=== PATIENT | male | born 1965 | race Caucasian/White ===

== ENCOUNTER 2020-12-04 08:01 | Outpatient (REF) | payer BC, SELFPAY ==
[2020-12-04 08:19] LABS: MANUAL DIFF FLAG NO
[2020-12-04 08:23] LABS: Basophils Percent Auto 0.2 % (0-2); Eosinophils Absolute Auto 0.1 X10*3/uL (0.0-0.4); Eosinophils Percent Auto 1.4 % (0-4); Hematocrit 45.4 % (42-52); Hemoglobin 15.1 g/dl (14.0-18.0); Imm Gran Abs Auto 0.05 X10*3/uL (0.00-0.03); Lymphocytes Absolute Auto 1.8 X10*3/uL (1.2-4.9); Lymphocytes Percent Auto 35.4 % (20-40); Mean Corpuscular HGB Conc 33.3 g/dl (31.0-36.0); Mean Corpuscular Hemoglobin 32.9 pg (27.0-33.0); Mean Corpuscular Volume 98.9 fL (80-98); Mean Platelet Volume 8.8 fL (9.4-12.4); Monocytes Absolute Auto 0.5 X10*3/uL (0.1-1.2); Monocytes Percent Auto 9.4 % (2-11); Neutrophils Absolute Auto 2.7 X10*3/uL (2.0-8.3); Neutrophils Percent Auto 52.6 % (45-73); Platelet Count 226 X10*3/uL (160-400); Red Blood Count 4.59 X10*6/uL (4.60-5.80); Red Cell Distribution Width 11.7 % (11.0-16.0); White Blood Count 5.1 X10*3/uL (4.8-10.8)
[2020-12-04 08:52] LABS: Alanine Aminotransferase 16 U/L (0-40); Albumin Level 4.5 g/dL (3.5-5.0); Alkaline Phosphatase 62 U/L (39-117); Anion Gap 13 (12-20); Aspartate Amino Transferase 12 U/L (5-37); Bilirubin Total 0.8 mg/dL (0.0-1.0); Blood Urea Nitrogen 17 mg/dL (9-16); Calcium 9.1 mg/dL (8.4-10.2); Carbon Dioxide 29 mmol/L (22-29); Chloride 103 mmol/L (96-108); Cholesterol 180 mg/dL; Estimated Glomerular Filt Rate > 60; Glucose Fasting 90 mg/dL (60-99); HDL Cholesterol 29 mg/dL; LDL Cholesterol Calculated 110 mg/dl; Sodium 140 mmol/L (135-145); Triglycerides 206 mg/dL
[2020-12-04 09:14] LABS: Prostate Specific Antigen 0.64 ng/mL (<0.05-4.0); Vitamin D 25-OH Total 11.7 ng/mL (>30)
== END 2020-12-04 08:02 | disposition home or self-care (01) ==
LOC: HO.LAB 08:01
PROVIDERS: Visit Provider Internal Medicine Medical Oncology
DX: E78.5 Hyperlipidemia, unspecified (principal); I10 Essential (primary) hypertension; E66.9 Obesity, unspecified
CPT/HCPCS: 36415; 80053; 80061; 82306; 84153; 85025

== ENCOUNTER 2021-03-03 07:51 | Outpatient (REF) | payer BC, SELFPAY ==
[2021-03-03 08:32] LABS: MANUAL DIFF FLAG NO
[2021-03-03 08:39] LABS: Basophils Percent Auto 0.4 % (0-2); Eosinophils Absolute Auto 0.1 X10*3/uL (0.0-0.4); Eosinophils Percent Auto 1.2 % (0-4); Hematocrit 45.7 % (42-52); Hemoglobin 15.3 g/dl (14.0-18.0); Imm Gran Abs Auto 0.06 X10*3/uL (0.00-0.03); Imm Gran Pct Auto 1.2 % (0.0-0.4); Lymphocytes Absolute Auto 1.8 X10*3/uL (1.2-4.9); Lymphocytes Percent Auto 36.3 % (20-40); Mean Corpuscular HGB Conc 33.5 g/dl (31.0-36.0); Mean Corpuscular Hemoglobin 32.2 pg (27.0-33.0); Mean Corpuscular Volume 96.2 fL (80-98); Mean Platelet Volume 9.1 fL (9.4-12.4); Monocytes Absolute Auto 0.5 X10*3/uL (0.1-1.2); Neutrophils Absolute Auto 2.5 X10*3/uL (2.0-8.3); Neutrophils Percent Auto 50.9 % (45-73); Platelet Count 223 X10*3/uL (160-400); Red Blood Count 4.75 X10*6/uL (4.60-5.80); Red Cell Distribution Width 11.7 % (11.0-16.0); White Blood Count 4.9 X10*3/uL (4.8-10.8)
[2021-03-03 09:07] LABS: Alanine Aminotransferase 21 U/L (0-40); Albumin Level 4.3 g/dL (3.5-5.0); Alkaline Phosphatase 73 U/L (39-117); Anion Gap 14 (12-20); Aspartate Amino Transferase 11 U/L (5-37); Bilirubin Total 0.6 mg/dL (0.0-1.0); Blood Urea Nitrogen 16 mg/dL (9-16); Calcium 9.4 mg/dL (8.4-10.2); Carbon Dioxide 29 mmol/L (22-29); Chloride 102 mmol/L (96-108); Cholesterol 192 mg/dL; Estimated Glomerular Filt Rate > 60; Glucose Fasting 89 mg/dL (60-99); HDL Cholesterol 32 mg/dL; LDL Cholesterol Calculated 113 mg/dl; Potassium 4.7 mmol/L (3.3-5.1); Sodium 140 mmol/L (135-145); Total Protein 6.8 g/dL (6.5-8.0); Triglycerides 235 mg/dL
== END 2021-03-03 07:52 | disposition home or self-care (01) ==
LOC: HO.LAB 07:51
PROVIDERS: PCP Internal Medicine Medical Oncology; Visit Provider Internal Medicine Medical Oncology
DX: E78.5 Hyperlipidemia, unspecified (principal); I10 Essential (primary) hypertension
CPT/HCPCS: 36415; 80053; 80061; 85025

== ENCOUNTER 2021-07-01 06:38 | Outpatient (REF) | payer BC, SELFPAY ==
[2021-07-01 07:01] LABS: MANUAL DIFF FLAG NO
[2021-07-01 07:09] LABS: Basophils Percent Auto 0.6 % (0-2); Eosinophils Absolute Auto 0.1 X10*3/uL (0.0-0.4); Hemoglobin 15.9 g/dl (14.0-18.0); Imm Gran Abs Auto 0.04 X10*3/uL (0.00-0.03); Imm Gran Pct Auto 0.8 % (0.0-0.4); Lymphocytes Percent Auto 39.6 % (20-40); Mean Corpuscular HGB Conc 33.8 g/dl (31.0-36.0); Mean Corpuscular Hemoglobin 32.9 pg (27.0-33.0); Mean Corpuscular Volume 97.3 fL (80-98); Mean Platelet Volume 9.1 fL (9.4-12.4); Monocytes Absolute Auto 0.4 X10*3/uL (0.1-1.2); Monocytes Percent Auto 7.2 % (2-11); Neutrophils Absolute Auto 2.5 X10*3/uL (2.0-8.3); Neutrophils Percent Auto 50.8 % (45-73); Platelet Count 231 X10*3/uL (160-400); Red Blood Count 4.83 X10*6/uL (4.60-5.80); Red Cell Distribution Width 12.2 % (11.0-16.0)
[2021-07-01 07:33] LABS: Alanine Aminotransferase 20 U/L (0-40); Albumin Level 4.4 g/dL (3.5-5.0); Alkaline Phosphatase 64 U/L (39-117); Anion Gap 12 (12-20); Aspartate Amino Transferase 12 U/L (5-37); Bilirubin Total 0.5 mg/dL (0.0-1.0); Blood Urea Nitrogen 12 mg/dL (9-16); Calcium 9.7 mg/dL (8.4-10.2); Carbon Dioxide 28 mmol/L (22-29); Chloride 104 mmol/L (96-108); Cholesterol 193 mg/dL; Estimated Glomerular Filt Rate > 60; Glucose Fasting 96 mg/dL (60-99); HDL Cholesterol 31 mg/dL; LDL Cholesterol Calculated 112 mg/dl; Sodium 139 mmol/L (135-145); Total Protein 7.1 g/dL (6.5-8.0); Triglycerides 254 mg/dL
[2021-07-01 07:54] LABS: Vitamin D 25-OH Total 42.9 ng/mL (>30)
== END 2021-07-01 06:39 | disposition home or self-care (01) ==
LOC: HO.LAB 06:38
PROVIDERS: PCP Internal Medicine Medical Oncology; Visit Provider Internal Medicine Medical Oncology
DX: E78.5 Hyperlipidemia, unspecified (principal); I10 Essential (primary) hypertension; E66.9 Obesity, unspecified
CPT/HCPCS: 36415; 80053; 80061; 82306; 84153; 85025

== ENCOUNTER 2021-11-02 07:14 | Outpatient (REF) | payer BC, SELFPAY ==
[2021-11-02 07:30] LABS: MANUAL DIFF FLAG NO
[2021-11-02 07:47] LABS: Basophils Percent Auto 0.4 % (0-2); Eosinophils Absolute Auto 0.1 X10*3/uL (0.0-0.4); Eosinophils Percent Auto 2.6 % (0-4); Hematocrit 46.6 % (42.0-52.0); Hemoglobin 15.5 g/dl (14.0-18.0); Imm Gran Abs Auto 0.06 X10*3/uL (0.00-0.03); Imm Gran Pct Auto 1.3 % (0.0-0.4); Lymphocytes Absolute Auto 1.6 X10*3/uL (1.2-4.9); Lymphocytes Percent Auto 35.1 % (20-40); Mean Corpuscular HGB Conc 33.3 g/dl (31.0-36.0); Mean Corpuscular Hemoglobin 32.5 pg (27.0-33.0); Mean Corpuscular Volume 97.7 fL (80.0-98.0); Mean Platelet Volume 8.6 fL (9.4-12.4); Monocytes Absolute Auto 0.5 X10*3/uL (0.1-1.2); Monocytes Percent Auto 10.3 % (2-11); Neutrophils Absolute Auto 2.3 x10*3/uL (2.0-8.3); Neutrophils Percent Auto 50.3 % (45-73); Platelet Count 207 X10*3/uL (160-400); Red Blood Count 4.77 X10*6/uL (4.60-5.80); Red Cell Distribution Width 11.9 % (11.0-16.0); White Blood Count 4.7 X10*3/uL (4.8-10.8)
[2021-11-02 08:11] LABS: Alanine Aminotransferase 34 U/L (0-40); Albumin Level 4.2 g/dL (3.5-5.0); Alkaline Phosphatase 70 U/L (39-117); Anion Gap 11 (12-20); Aspartate Amino Transferase 16 U/L (5-37); Bilirubin Total 0.2 mg/dL (0.0-1.0); Blood Urea Nitrogen 12 mg/dL (9-16); Calcium 9.4 mg/dL (8.4-10.2); Carbon Dioxide 29 mmol/L (22-29); Chloride 104 mmol/L (96-108); Cholesterol 176 mg/dL; Estimated Glomerular Filt Rate > 60; Glucose Random 94 mg/dL (60-115); HDL Cholesterol 27 mg/dL; LDL Cholesterol Calculated 95 mg/dl; Potassium 4.5 mmol/L (3.3-5.1); Sodium 139 mmol/L (135-145); Total Protein 6.9 g/dL (6.5-8.0); Triglycerides 273 mg/dL
== END 2021-11-02 07:15 | disposition home or self-care (01) ==
LOC: HO.LAB 07:14
PROVIDERS: PCP Internal Medicine Medical Oncology; Visit Provider Internal Medicine Medical Oncology
DX: I10 Essential (primary) hypertension (principal); E78.5 Hyperlipidemia, unspecified; E66.9 Obesity, unspecified
CPT/HCPCS: 36415; 80053; 80061; 85025

== ENCOUNTER 2022-01-21 07:44 | Outpatient (REF) | payer BC, SELFPAY ==
[2022-01-21 08:16] LABS: MANUAL DIFF FLAG NO
[2022-01-21 08:45] LABS: Basophils Percent Auto 0.5 % (0-2); Eosinophils Percent Auto 0.7 % (0-4); Hemoglobin 16.2 g/dl (14.0-18.0); Imm Gran Abs Auto 0.03 X10*3/uL (0.00-0.03); Imm Gran Pct Auto 0.5 % (0.0-0.4); Lymphocytes Absolute Auto 2.1 X10*3/uL (1.2-4.9); Lymphocytes Percent Auto 36.3 % (20-40); Mean Corpuscular HGB Conc 33.1 g/dl (31.0-36.0); Mean Corpuscular Hemoglobin 32.2 pg (27.0-33.0); Mean Corpuscular Volume 97.4 fL (80.0-98.0); Mean Platelet Volume 9.1 fL (9.4-12.4); Monocytes Absolute Auto 0.5 X10*3/uL (0.1-1.2); Monocytes Percent Auto 8.5 % (2-11); Neutrophils Absolute Auto 3.2 x10*3/uL (2.0-8.3); Neutrophils Percent Auto 53.5 % (45-73); Platelet Count 260 X10*3/uL (160-400); Red Blood Count 5.03 X10*6/uL (4.60-5.80); White Blood Count 5.9 X10*3/uL (4.8-10.8)
[2022-01-21 09:27] LABS: Alanine Aminotransferase 31 U/L (0-40); Albumin Level 4.7 g/dL (3.5-5.0); Alkaline Phosphatase 72 U/L (39-117); Anion Gap 14 (12-20); Aspartate Amino Transferase 15 U/L (5-37); Bilirubin Total 0.6 mg/dL (0.0-1.0); Blood Urea Nitrogen 15 mg/dL (9-16); Calcium 10.4 mg/dL (8.4-10.2); Carbon Dioxide 28 mmol/L (22-29); Chloride 105 mmol/L (96-108); Cholesterol 195 mg/dL; Estimated Glomerular Filt Rate > 60; Glucose Fasting 94 mg/dL (60-99); HDL Cholesterol 29 mg/dL; LDL Cholesterol Calculated 118 mg/dl; Potassium 5.4 mmol/L (3.3-5.1); Sodium 142 mmol/L (135-145); Total Protein 7.6 g/dL (6.5-8.0); Triglycerides 242 mg/dL
[2022-01-21 09:51] LABS: Vitamin D 25-OH Total 31.8 ng/mL (>30)
== END 2022-01-21 07:45 | disposition home or self-care (01) ==
LOC: HO.LAB 07:44
PROVIDERS: PCP Internal Medicine Medical Oncology; Visit Provider Internal Medicine Medical Oncology
DX: I10 Essential (primary) hypertension (principal); E66.9 Obesity, unspecified; D75.89 Other specified diseases of blood and blood-forming organs
CPT/HCPCS: 36415; 80053; 80061; 82306; 85025

== ENCOUNTER 2022-04-27 06:31 | Outpatient (REF) | payer BC, SELFPAY ==
[2022-04-27 06:42] LABS: MANUAL DIFF FLAG NO
[2022-04-27 07:30] LABS: Basophils Percent Auto 0.2 % (0-2); Eosinophils Absolute Auto 0.1 X10*3/uL (0.0-0.4); Eosinophils Percent Auto 0.9 % (0-4); Hematocrit 42.7 % (42.0-52.0); Imm Gran Abs Auto 0.09 X10*3/uL (0.00-0.03); Imm Gran Pct Auto 1.6 % (0.0-0.4); Lymphocytes Absolute Auto 1.3 X10*3/uL (1.2-4.9); Lymphocytes Percent Auto 24.1 % (20-40); Mean Corpuscular HGB Conc 32.8 g/dl (31.0-36.0); Mean Corpuscular Hemoglobin 32.2 pg (27.0-33.0); Mean Corpuscular Volume 98.2 fL (80.0-98.0); Mean Platelet Volume 8.7 fL (9.4-12.4); Monocytes Absolute Auto 0.5 X10*3/uL (0.1-1.2); Monocytes Percent Auto 8.3 % (2-11); Neutrophils Absolute Auto 3.6 x10*3/uL (2.0-8.3); Neutrophils Percent Auto 64.9 % (45-73); Platelet Count 179 X10*3/uL (160-400); Red Blood Count 4.35 X10*6/uL (4.60-5.80); Red Cell Distribution Width 13.3 % (11.0-16.0); White Blood Count 5.5 X10*3/uL (4.8-10.8)
[2022-04-27 07:59] LABS: Alanine Aminotransferase 22 U/L (0-40); Albumin Level 4.1 g/dL (3.5-5.0); Alkaline Phosphatase 66 U/L (39-117); Anion Gap 15 (12-20); Aspartate Amino Transferase 11 U/L (5-37); Bilirubin Total 0.8 mg/dL (0.0-1.0); Blood Urea Nitrogen 11 mg/dL (9-16); Calcium 9.1 mg/dL (8.4-10.2); Carbon Dioxide 26 mmol/L (22-29); Chloride 103 mmol/L (96-108); Cholesterol 205 mg/dL; Estimated Glomerular Filt Rate > 60; Glucose Fasting 97 mg/dL (60-99); HDL Cholesterol 34 mg/dL; LDL Cholesterol Calculated 126 mg/dl; Potassium 4.8 mmol/L (3.3-5.1); Sodium 139 mmol/L (135-145); Total Protein 6.6 g/dL (6.5-8.0); Triglycerides 225 mg/dL
== END 2022-04-27 06:32 | disposition home or self-care (01) ==
LOC: HO.LAB 06:31
PROVIDERS: PCP Internal Medicine Medical Oncology; Visit Provider Internal Medicine Medical Oncology
DX: E78.5 Hyperlipidemia, unspecified (principal); E66.9 Obesity, unspecified; D75.89 Other specified diseases of blood and blood-forming organs
CPT/HCPCS: 36415; 80053; 80061; 85025

== ENCOUNTER 2022-04-30 10:46 | Outpatient (REF) | payer BC, SELFPAY ==
--- NOTE | ~2022-04-30 | XR_ITS ---
EXAMINATION: XR RIBS, RIGHT CLINICAL INFORMATION: Right-sided pain COMPARISON: None TECHNIQUE: 3 views of the right ribs and one view of the chest were obtained. FINDINGS: The cardiac and mediastinal contours are normal. There is slight elevation of the right hemidiaphragm. The lungs are clear.. There is no pleural effusion or pneumothorax. There are degenerative changes of the thoracic spine. No rib fracture is seen. XR/XR ribs RT min 3V w CXR1V IMPRESSION: No evidence for acute disease in the chest. No rib fracture is seen.
== END 2022-04-30 10:47 | disposition home or self-care (01) ==
LOC: HO.XRAY 10:46
PROVIDERS: PCP Internal Medicine Medical Oncology; Visit Provider Internal Medicine Medical Oncology
DX: R07.81 Pleurodynia (principal)
CPT/HCPCS: 71101

== ENCOUNTER → 2023-02-11 09:46 | Outpatient (BNVA) | payer BC, SELFPAY | PROVIDERS: PCP Internal Medicine Medical Oncology; Visit Provider Physician Assistant | DX: Z13.89 Encounter for screening for other disorder (principal) ==

== ENCOUNTER → 2023-04-01 15:30 | Outpatient (BNVA) | payer BC, SELFPAY | PROVIDERS: PCP Internal Medicine Medical Oncology; Visit Provider Physician Assistant ==

== ENCOUNTER 2023-04-25 06:30 | Outpatient (REF) | payer BC, SELFPAY ==
[2023-04-25 06:40] LABS: MANUAL DIFF FLAG NO
[2023-04-25 07:27] LABS: Basophils Percent Auto 0.5 % (0-2); Eosinophils Absolute Auto 0.1 X10*3/uL (0.0-0.4); Hematocrit 48.7 % (42.0-52.0); Hemoglobin 16.2 g/dl (14.0-18.0); Imm Gran Abs Auto 0.05 X10*3/uL (0.00-0.03); Imm Gran Pct Auto 0.8 % (0.0-0.4); Lymphocytes Percent Auto 33.6 % (20-40); Mean Corpuscular HGB Conc 33.3 g/dl (31.0-36.0); Mean Corpuscular Hemoglobin 31.2 pg (27.0-33.0); Mean Corpuscular Volume 93.7 fL (80.0-98.0); Mean Platelet Volume 8.9 fL (9.4-12.4); Monocytes Absolute Auto 0.5 X10*3/uL (0.1-1.2); Monocytes Percent Auto 8.5 % (2-11); Neutrophils Absolute Auto 3.3 x10*3/uL (2.0-8.3); Neutrophils Percent Auto 55.6 % (45-73); Platelet Count 336 X10*3/uL (160-400)
[2023-04-25 08:15] LABS: Alanine Aminotransferase 25 U/L (0-40); Albumin Level 4.3 g/dL (3.5-5.0); Alkaline Phosphatase 84 U/L (39-117); Anion Gap 16 (12-20); Aspartate Amino Transferase 18 U/L (5-37); Bilirubin Total 0.6 mg/dL (0.0-1.0); Blood Urea Nitrogen 18 mg/dL (9-16); Carbon Dioxide 25 mmol/L (22-29); Chloride 107 mmol/L (96-108); Cholesterol 195 mg/dL; Estimated Glomerular Filt Rate > 60; Glucose Fasting 91 mg/dL (60-99); HDL Cholesterol 27 mg/dL; LDL Cholesterol Calculated 115 mg/dl; Potassium 4.3 mmol/L (3.3-5.1); Sodium 144 mmol/L (135-145); Total Protein 7.5 g/dL (6.5-8.0); Triglycerides 267 mg/dL
[2023-04-25 08:23] LABS: Prostate Specific Antigen 0.52 ng/mL (<0.05-4.0)
== END 2023-04-25 06:31 | disposition home or self-care (01) ==
LOC: HO.LAB 06:30
PROVIDERS: PCP Internal Medicine Medical Oncology; Visit Provider Internal Medicine Medical Oncology
DX: Z12.5 Encounter for screening for malignant neoplasm of prostate (principal); I10 Essential (primary) hypertension; E78.5 Hyperlipidemia, unspecified; E66.9 Obesity, unspecified; E83.52 Hypercalcemia
CPT/HCPCS: 36415; 80053; 80061; 80164; 84153; 85025

== ENCOUNTER 2023-04-27 09:00 | Outpatient (RCR) | payer BC, SELFPAY ==
--- NOTE | 2023-03-09 09:55 | MHC.PT.EP ---
[facility] [place] Office [place] Office [place] Office [address] Yessy Diaz [address] [phone] F: [phone] F: [phone] F: [phone] F: [phone] Physical Therapy Plan of Care Date of Evaluation: Date of Surgery: N/A Diagnosis: Sacrocccygeal disorders, not elsewhere classified Other chronic pain SI joint pain, dysfunction Assessment: Pt is a pleasant 57yo M who presents to PT, with his , with R SI joint pain. Pt presents to PT with current impairments of pain, decreased lumbar ROM, posterior chain tightness, decreased core stabilization, decreased hip/glute strength, impaired posture, and impaired gait. He is limited functionally by prolonged sitting, sit<>stand transitions, supine<>sit, getting in/out of the car, bending, and mowing the lawn. He is an excellent candidate for skilled PT in order to address current impairments to facilitate return to PLOF. He is recommended to be seen 2x/week however at this time him and his prefer 1x/week therefore he will be seen 1x/week for 6 weeks and will be reassessed at that time. Frequency and Duration: The patient will be seen 1x/week for 6 weeks Short Term Goals: Pt will be I with HEP to promote self management of symptoms Pt will perform supine<>sit with log roll technique with proper form Pt will improve B glute med strength by 1/2 grade [employer] Binder Goals: Pt will tolerate standing and walking > 25 min with minimal to no discomfort and improved gait mechanics Pt will perform functional movement transitions including sit<>stand and getting in/out of bed with improved mechanics with pain < 3/10 Pt will demonstrate improvements in function as evidenced by statistically significant improvement in Modified Oswestry Low Back Pain Disability Index Questionnaire Treatment Plan: Modalities to reduce pain, spasms and effusion. Manual therapy to restore motion and function. Therapeutic exercise to improve strength and flexibility. Neuromuscular re-education for posture and balance. Therapeutic activities to return to functional activities of daily living. Electronically signed by: Yulisa Gordon, PT, DPT Please sign and return to therapist. Thank you for your referral.
--- NOTE | 2023-04-27 11:54 | MHC.PT.DC ---
[facility] [place] Office [place] Office [place] Office [address] Morena Diaz [address] [phone] F: [phone] F: [phone] F: [phone] F: [phone] Physical Therapy Discharge Report Diagnosis: Sacrocccygeal disorders, not elsewhere classified Other chronic pain SI joint pain, dysfunction Date of Surgery: N/A Date of Evaluation: 03/09/23 Date of Discharge: 04/27/23 Treatments to Date: 6 Cancellations to Date: No Shows to Date: Discharge Status: Achieved Goals Improved Function Discharge Summary: Pt has made good progress since SOC. He has no pain. He has met his LTGs. He has improved his score on Modified Oswestry Low Back Pain Questionnaire from 30/50 on initial PT evaluation to 4/50 today. He reports he feels ready for D/C from PT. Provided pt with printed, updated copy of HEP and GTB and pt verbalized understanding. Reviewed importance of mobility and proper body mechanics and pt verbalized understanding. Pt is being D/C from skilled PT at this time. He reports no further questions or concerns for PT. Electronically signed by: Yulisa Gordon, PT, DPT Please sign and return to therapist. Thank you for your referral.
== END 2023-04-27 11:35 | disposition home or self-care (01) ==
LOC: HO.PT 09:00
PROVIDERS: PCP Internal Medicine Medical Oncology; Visit Provider Physician Assistant
DX: M53.3 Sacrococcygeal disorders, not elsewhere classified (principal); G89.29 Other chronic pain
CPT/HCPCS: 97014; 97110; 97162

== ENCOUNTER 2023-08-29 06:57 | Outpatient (REF) | payer BC, SELFPAY ==
[2023-08-29 07:16] LABS: MANUAL DIFF FLAG NO
[2023-08-29 07:45] LABS: Basophils Percent Auto 0.3 % (0-2); Eosinophils Absolute Auto 0.1 X10*3/uL (0.0-0.4); Eosinophils Percent Auto 0.9 % (0-4); Hematocrit 49.2 % (42.0-52.0); Hemoglobin 16.7 g/dl (14.0-18.0); Imm Gran Abs Auto 0.05 X10*3/uL (0.00-0.03); Imm Gran Pct Auto 0.9 % (0.0-0.4); Lymphocytes Absolute Auto 1.6 X10*3/uL (1.2-4.9); Lymphocytes Percent Auto 27.9 % (20-40); Mean Corpuscular HGB Conc 33.9 g/dl (31.0-36.0); Mean Corpuscular Hemoglobin 30.9 pg (27.0-33.0); Mean Corpuscular Volume 91.1 fL (80.0-98.0); Mean Platelet Volume 9.1 fL (9.4-12.4); Monocytes Absolute Auto 0.6 X10*3/uL (0.1-1.2); Monocytes Percent Auto 9.5 % (2-11); Neutrophils Absolute Auto 3.5 x10*3/uL (2.0-8.3); Neutrophils Percent Auto 60.5 % (45-73); Platelet Count 205 X10*3/uL (160-400); Red Cell Distribution Width 12.1 % (11.0-16.0); White Blood Count 5.8 X10*3/uL (4.8-10.8)
[2023-08-29 08:31] LABS: Alanine Aminotransferase 28 U/L (0-40); Albumin Level 4.1 g/dL (3.5-5.0); Alkaline Phosphatase 86 U/L (39-117); Anion Gap 14 (12-20); Aspartate Amino Transferase 17 U/L (5-37); Bilirubin Total 0.6 mg/dL (0.0-1.0); Blood Urea Nitrogen 14 mg/dL (9-16); Calcium 9.5 mg/dL (8.4-10.2); Carbon Dioxide 26 mmol/L (22-29); Chloride 106 mmol/L (96-108); Cholesterol 175 mg/dL (<200); Estimated Glomerular Filt Rate > 60; Glucose Fasting 94 mg/dL (60-99); HDL Cholesterol 30 mg/dL (>40); LDL Cholesterol Calculated 106 mg/dL (<100); Potassium 4.6 mmol/L (3.3-5.1); Sodium 141 mmol/L (135-145); Total Protein 6.5 g/dL (6.5-8.0); Triglycerides 199 mg/dL (<150)
== END 2023-08-29 06:58 | disposition home or self-care (01) ==
LOC: HO.LAB 06:57
PROVIDERS: PCP Internal Medicine Medical Oncology; Visit Provider Internal Medicine Medical Oncology
DX: I10 Essential (primary) hypertension (principal); E78.5 Hyperlipidemia, unspecified; G40.909 Epilepsy, unspecified, not intractable, without status epilepticus
CPT/HCPCS: 36415; 80053; 80061; 85025

== ENCOUNTER 2023-11-15 06:23 | Outpatient (REF) | payer BC, SELFPAY ==
[2023-11-15 06:34] LABS: MANUAL DIFF FLAG NO
[2023-11-15 07:46] LABS: Basophils Percent Auto 0.6 % (0-2); Eosinophils Absolute Auto 0.1 X10*3/uL (0.0-0.4); Eosinophils Percent Auto 1.4 % (0-4); Hematocrit 47.8 % (42.0-52.0); Imm Gran Abs Auto 0.06 X10*3/uL (0.00-0.03); Lymphocytes Absolute Auto 1.8 X10*3/uL (1.2-4.9); Lymphocytes Percent Auto 29.1 % (20-40); Mean Corpuscular HGB Conc 33.5 g/dl (31.0-36.0); Mean Corpuscular Hemoglobin 30.9 pg (27.0-33.0); Mean Corpuscular Volume 92.3 fL (80.0-98.0); Mean Platelet Volume 9.4 fL (9.4-12.4); Monocytes Absolute Auto 0.6 X10*3/uL (0.1-1.2); Monocytes Percent Auto 9.5 % (2-11); Neutrophils Absolute Auto 3.6 x10*3/uL (2.0-8.3); Neutrophils Percent Auto 58.4 % (45-73); Platelet Count 231 X10*3/uL (160-400); Red Blood Count 5.18 X10*6/uL (4.60-5.80); Red Cell Distribution Width 12.6 % (11.0-16.0); White Blood Count 6.2 X10*3/uL (4.8-10.8)
[2023-11-15 08:14] LABS: Alanine Aminotransferase 25 U/L (0-40); Albumin Level 4.2 g/dL (3.5-5.0); Alkaline Phosphatase 83 U/L (39-117); Anion Gap 13 (12-20); Aspartate Amino Transferase 17 U/L (5-37); Bilirubin Total 0.7 mg/dL (0.0-1.0); Blood Urea Nitrogen 14 mg/dL (9-16); Calcium 9.6 mg/dL (8.4-10.2); Carbon Dioxide 26 mmol/L (22-29); Chloride 108 mmol/L (96-108); Cholesterol 183 mg/dL (<200); Estimated Glomerular Filt Rate > 60; Glucose Fasting 105 mg/dL (60-99); HDL Cholesterol 31 mg/dL (>40); LDL Cholesterol Calculated 116 mg/dL (<100); Potassium 4.8 mmol/L (3.3-5.1); Sodium 142 mmol/L (135-145); Total Protein 6.7 g/dL (6.5-8.0); Triglycerides 180 mg/dL (<150)
[2023-11-15 08:31] LABS: Prostate Specific Antigen 0.91 ng/mL (<0.05-4.0)
== END 2023-11-15 06:24 | disposition home or self-care (01) ==
LOC: HO.LAB 06:23
PROVIDERS: PCP Internal Medicine Medical Oncology; Visit Provider Internal Medicine Medical Oncology
DX: Z12.5 Encounter for screening for malignant neoplasm of prostate (principal); I10 Essential (primary) hypertension; E78.5 Hyperlipidemia, unspecified; G40.909 Epilepsy, unspecified, not intractable, without status epilepticus; S06.9X9A Unspecified intracranial injury with loss of consciousness of unspecified duration, initial encounter; E66.9 Obesity, unspecified
CPT/HCPCS: 36415; 80053; 80061; 84153; 85025

== ENCOUNTER 2024-02-15 07:01 | Outpatient (REF) | payer BC, SELFPAY ==
[2024-02-15 07:56] LABS: Basophils Percent Auto 0.5 % (0-2); Eosinophils Absolute Auto 0.1 X10*3/uL (0.0-0.4); Hematocrit 46.9 % (42.0-52.0); Hemoglobin 16.2 g/dl (14.0-18.0); Imm Gran Abs Auto 0.06 X10*3/uL (0.00-0.03); Lymphocytes Absolute Auto 1.6 X10*3/uL (1.2-4.9); Lymphocytes Percent Auto 27.5 % (20-40); MANUAL DIFF FLAG SCAN; Mean Corpuscular HGB Conc 34.5 g/dl (31.0-36.0); Mean Corpuscular Hemoglobin 31.9 pg (27.0-33.0); Mean Corpuscular Volume 92.3 fL (80.0-98.0); Monocytes Absolute Auto 0.6 X10*3/uL (0.1-1.2); Monocytes Percent Auto 10.2 % (2-11); Neutrophils Absolute Auto 3.5 x10*3/uL (2.0-8.3); Neutrophils Percent Auto 58.8 % (45-73); PLT CLUMP 1; Red Blood Count 5.08 X10*6/uL (4.60-5.80); Red Cell Distribution Width 12.6 % (11.0-16.0); SCAN SMEAR FLAG 1
[2024-02-15 08:17] LABS: Alanine Aminotransferase 40 U/L (0-40); Albumin Level 4.2 g/dL (3.5-5.0); Alkaline Phosphatase 102 U/L (39-117); Anion Gap 15 (12-20); Aspartate Amino Transferase 29 U/L (5-37); Bilirubin Total 1.2 mg/dL (0.0-1.0); Blood Urea Nitrogen 12 mg/dL (9-16); Calcium 9.8 mg/dL (8.4-10.2); Carbon Dioxide 26 mmol/L (22-29); Chloride 104 mmol/L (96-108); Cholesterol 198 mg/dL (<200); Estimated Glomerular Filt Rate > 60; Glucose Fasting 98 mg/dL (60-99); HDL Cholesterol 32 mg/dL (>40); LDL Cholesterol Calculated 123 mg/dL (<100); Potassium 4.9 mmol/L (3.3-5.1); Sodium 140 mmol/L (135-145); Total Protein 7.1 g/dL (6.5-8.0); Triglycerides 218 mg/dL (<150)
[2024-02-15 09:09] LABS: Platelet Count 220 X10*3/uL (160-400)
[2024-02-15 13:29] LABS: SLIDE REVIEW VERIFIED
== END 2024-02-15 07:02 | disposition home or self-care (01) ==
LOC: HO.LAB 07:01
PROVIDERS: PCP Internal Medicine Medical Oncology; Visit Provider Internal Medicine Medical Oncology
DX: I10 Essential (primary) hypertension (principal); E78.5 Hyperlipidemia, unspecified; E83.52 Hypercalcemia
CPT/HCPCS: 36415; 80053; 80061; 85025

== ENCOUNTER 2024-10-29 06:46 | Outpatient (REF) | payer BC, SELFPAY ==
--- OUTSIDE RECORDS SUMMARY | 2024-10-29 06:49 | XMS_ITS | Continuity of Care Document ---
Author Organization [facility] Address [address] [facility], 3r d Floor, [address] [place] [address]- Care Team Providers Care Services Program Manager Name Role Phone Tiffanie QUIROZ, Gerber Meyers Primary Care Physician Encounter [facility] [place] Date(s): 09/04/24 - 10/04/24 [facility] [address] [facility] 3rd Floor, [address] [place] [id number] Encounter Type: Triage Allergies, Adverse Reactions, Alerts Substance Criticality Severity Reaction Reaction Severity Status dexamethasone facial swelling Active Immunizations Given and Recorded Vaccine Date Status Refusal Reason SARS-CoV-2 (COVID-19) mRNA BNT-162b2 vac 03/20/21 Given SARS-CoV-2 (COVID-19) mRNA BNT-162b2 vac 02/27/21 Given pneumococcal 23-valent vaccine 08/07/14 Given tetanus/diphtheria/pertussis, acel(Tdap) 10/12/13 Given tetanus-diphtheria toxoids (Td) 1 01/24/12 Given 1Admin Note: [place] [facility] Medications atorvastatin 40 mg oral tablet 1 tablet = 40 mg, By Mouth, Daily, # 30 tablet, 11 Refills, Maintenance, Tablet, Route to Pharmacy Electronically, [id number], [facility]/pharmacy #1972 Start Date: 09/20/16 Stop Date: 09/15/17 Status: Ordered Quantity: 30.0 Unit: tablet Repeat number: 12 Depakote ER 500 mg oral tablet, extended release 1 tablet = 500 mg, By Mouth, 2 times a day, # 60 tablet, 5 Refills, Maintenance, 05/21/16 2:50:14 PMEDT, ER Tablet, [facility]pharmacy #1972, discontinue the 250 mg tablets Start Date: 05/21/16 Stop Date: 11/17/16 Status: Ordered Quantity: 60.0 Unit: tablet Repeat number: 6 gabapentin 300 mg oral capsule 600 mg, 2, capsule, By Mouth, 2 times a day, # 120 capsule, Refills 2, Tot. Refills 2, Maintenance,07/30/24 1:42:00 PM EDT, Route to Pharmacy Electronically, [facility]/pharmacy #1972, Partial fill upon patient request if the prescription is for a schedule II opioid drug., 175.26, cm, 09/20/23 7:54:00 EST, Height, 103, kg, 01/08/23 15:37:00 EST, Dry Weight Start Date: 07/30/24 Status: Ordered Quantity: 120.0 Unit: capsule Repeat number: 3 ibuprofen 200 mg oral tablet 200 mg, 1, tablet, By Mouth, Every 6 hours, Refills 0, Maintenance, 03/28/23 1:47:00 PM EDT, Partialfill upon patient request if the prescription is for a schedule II opioid drug. Start Date: 03/28/23 Status: Ordered Repeat number: 1 Metoprolol Succinate ER 50 mg oral tablet, extended release 1 tablet = 50 mg, By Mouth, Daily, # 30 tablet, 2 Refills, Maintenance, 10/19/16 2:04:30 PM EST, ERTablet, [facility]/pharmacy #1972, discontinue amlodipine Start Date: 10/19/16 Stop Date: 01/17/17 Status: Ordered Quantity: 30.0 Unit: tablet Repeat number: 3 David Hernandez Walker, See Instructions, # 1 each, Refills 0, Tot. Refills 0, Maintenance, Rolling walker,01/09/23 10:19:00 AM EST, Supply Start Date: 01/09/23 Status: Ordered Quantity: 1.0 Unit: each Repeat number: 1 Problem List Condition Confirmation Course Effective Dates Status H ealth Status Informant Adjustment disorder with mixed anxiety and depressed mood Confirmed Active Hyperlipidemia Confirmed Active Hypertension Confirmed Active Overweight Confirmed Active Severe obesity (BMI 35.0-39.9) with comorbidity Confirmed Active Traumatic brain injury Confirmed 07/31/14 Active Social History Social History Type Response Smoking Status Never smoker entered on: 10/12/13 Sex Sex Representation Male (finding) Patient Care team information Care Team Personnel Name: Gerber Moreno MD Position: [facility] Physician - Oncology Member Role: PCP Address: [address] [place] [address] [address] [place] [address]- Telecom: Name: Elizabeth Escobar RN Position: [facility] RN Member Role: Primary Care Nurse Name: Gustavo Stanton RN Position: [facility] RN Member Role: Primary Care Nurse Name: Shadia Tucker RN Position: [facility] RN Supv Member Role: Primary Care Nurse Name: Lina Jo RN Position: [facility] RN Member Role: Primary Care Nurse Name: Keysha Freeman RN Position: [facility] RN Member Role: Primary Care Nurse Care Team Related Persons Name: HELEN CRENSHAW Insurance Providers Guarantor name: DANIELLA Health Plan Information #: 1 Payer: HMO BLUE IN NETWORK Member Number: NA Policy Number: NA Group Number: NA
--- OUTSIDE RECORDS SUMMARY | 2024-10-29 06:49 | XMS_ITS ---
Author Organization Gerber Moreno III, MD Address [address] [place] [address] [place] [address] Care Team Providers Care Gunite Mixer Name Role Phone Gerber Moreno Primary Care Provider [phone] Allergies Allergen (clinical drug ingredient) Drug/Non Drug Allergy documented on EMR Reaction Allergy Type Onset Date Status No Known Drug Allergy Unknown Drug Allergy Active REASON FOR VISIT Recently stack virus infection, Traumatic brain injury, Hypertension, Obesity, Hypercalcemia, Lumbar radiculopathy Medications Medication SIG (Take, Route, Frequency, Duration) Notes Start Date End Date Status Gabapentin 300 MG TAKE 1 CAPSULE BY MO UT EVERY DAY Oral Active Metoprolol Succinate ER 50 MG TAKE 1 TABLET BY MOUTH EVERY DAY Active dexAMETHasone 2 MG 1 tablet Orally ever y 12 hrs 12/24/2022 Active Atorvastatin Calcium 40 MG TAKE 1 TABLET BY MOUTH EVERY DAY Active Divalproex Sodium ER 500 MG 1 tablet Ora lly twice a day Active Social History Tobacco Use: Social History Observation Description Date Details (start date - stop date) Never Smoker NA - NA Sex Assigned At : Social History Observation Description Sex Assigned At Male Tobacco Use/Smoking Question Answer Notes Patient is a nonsmoker Additional Findings: Tobacco Non-User Aggressive non-smoker Vital Signs Height 67.5 in 08/08/2024 Encounters Encounter Location Date Provider Diagnosis Gerber Moreno III, MD [address] [place] [address] [place] [address] 08/08/2024 Gerber Moreno Hypertension I10 ; Hyperlipidemia E78.5 ; Obesity E66.9 ; BPH (benign prostatic hyperplasia) N40.0 ; Anosmia R43.0 ; Epilepsy G40.909 and Hypercalcemia E83.52 Assessments Encounter Date Diagnosis (ICD Code) Assessment Notes Treat ment Notes Treatment Clinical Notes 08/08/2024 Hypertension (ICD-10 - I10) His blood pressure has been normal. He was given an appointment to return to the office to measure his vital signs. 08/08/2024 Hyperlipidemia (ICD-10 - E78.5) Comprehensive blood work with a fasting lipid profile was ordered today. 08/08/2024 Obesity (ICD-10 - E66.9) His body mass index is 38. We discussed a weight loss strategy today. We discussed his diet. We reviewed his nutrition. 08/08/2024 BPH (benign prostati c hyperplasia) (ICD-10 - N40.0) He arises from sleep once a night to urinate. We have discussed various lifestyle modifications he could make to reduce nocturia. 08/08/2024 Anosmia (ICD-10 - R43.0) He has noted no improvement in his anosmia. No other cranial nerve abnormalities have occurred. 08/08/2024 Epilepsy (ICD-10 - G40.909) He is compliant with his medication and has had no recent seizures. 08/08/2024 Hypercalcemia (ICD-1 0 - E83.52) His calcium level has normalized. It is now 9.8 and will be observed. Plan Of Treatment Medication Medication Name Sig Start Date Stop Date Notes Gabapentin 300 MG TAKE 1 CAPSULE BY MO UT EVERY DAY Oral Metoprolol Succinate ER 50 MG TAKE 1 TAB LET BY MOUTH EVERY DAY dexAMETHasone 2 MG 1 tablet Orally every 12 hrs 12/24/2022 Atorvastatin Calcium 40 MG TAKE 1 TABLET BY MOUTH EVERY DAY Divalproex Sodium ER 500 MG 1 tablet Orally twice a day Pending Test Test Name Order Date PROFILE, FASTING (COMPREHENSIVE METABOLI C) 08/08/2024 PSA, TOTAL 08/08/2024 CBC WITH AUTO DIFF 08/08/2024 Lipid Panel 08/08/2024 Next Appt Details Follow Up: 3 Months, Reason: OV Provider Name:Gerber Moreno, 11/08/2024 10:30:00 AM, [address] [place] [address] , [address], [place], [address], Provider Name:Gerber Moreno, 05/09/2025 09:30:00 AM, [address] [place] [address] DR, [address], [place], [address], Progress Notes * Tyler CRENSHAW GDOB: 6 (59 yo M)Acc No.[id number]:08/08/2024 Patient:?Tyler CRENSHAW G Provider:?Gerber Moreno MD :1965???Age:59 Y???Sex:Male Evans e:08/08/2024 Address:[address] [place], [place] [id number] Subjective: * Chief Complaints: * ???Recently stack virus inf ectionTraumatic brain injuryHypertensionObesityHypercalcemiaLumbar radiculopathy * HPI: ???:? This telehealth visit took place over 15 min. with the patient at home and me in my office.? He gave consent for billing.? Last week she tested positive for coronavirus in the context of a moderate viral syndrome.? He is now feeling much better but still test positive after 9 days. He has a residual cough.? We discussed the management of coughing.? He is otherwise stable.? He has had no seizures.? He was given an appointment to return to the office after comprehensive blood work in a couple of months. ?Telehealth?Location of provider rendering services:?{...} [address] [place] [address] [address] [facility] [address] ?Location of patient:?address listed in demographics for today's visit ?Patient identification confirmed using:?Name, ?Telehealth method:?Telephone only. Patient not visible to care provider. ?Consent:?Patient verbally consented to treatment, Patient verbally consented to billing insurance company, Patient informed of any privacy concerns related to method of visit ?Total time spent with patient (mins)?15 * ROS:?General/Constitutional:?pain?only normal aches and pains.?Chills?denies.?Fatigue?admits.?Fever?denies.?ENT:?Decreased hearing?denies.?Respiratory:?Cough?non-productive.?Cardiovascular:?Chest pain with exertion?denies.?Dyspnea on exertion?denies.?Shortness of breath?denies.?Gastrointestinal:?Constipation?denies.?Decreased appetite?denies.?Diarrhea?denies.?Heartburn?occasional.?Nausea?denies.?Rectal bleeding?denies.?Vomiting?denies.?Hematology:?bruising?denies.?petechiae?denies.?Swollen glands?none have been noted.?Genitourinary:?Frequent urination?once a night.?Musculoskeletal:?Muscle aches?denies.?Painful joints?denies.?Sciatica?denies.?Weakness?denies.?Skin:?Itching?denies.?Rash?denies.?Skin lesion(s)?denies.?Neurologic:?Difficulty speaking?denies.?Dizziness?denies.?Headache?denies.?Low back pain?denies.?Psychiatric:?Depressed mood?denies.? * Medical History:? * Surgical History:?feeding tu be insertion after traumatic brain injury 2014colonoscopy, two adenomatous polyps 01/2017extraction all mandibular teeth 04/2018Colonoscopy 04/2022 * Hospitalization/Major Diagno stic Procedure:? * Family History:?Father: dece ased 42 yrs, CAD, myocardial infarction, diagnosed with CVD.?Mother: 72 yrs, of heart failure, copd, diagnosed with CVD.?Children: diagnosed with HTN.?1 brother(s) , 2 sister(s) - healthy. 1 son(s) , 1 daughter(s) - healthy. .? He has a brother, Jewel, and a sister, Briana, who are alive and well and healthy. His children are healthy as well. There is no family history of breast cancer or ovarian cancer. There is a strong family history of cardiovascular disease. There is no family history of mental illness, substance use disorder or addiction. * Social History:?Tobacco Use:?Tobacco Use/Smoking?Patient is a?nonsmoker ?Additional Findings: Tobacco Non-User?Aggressive non-smoker ???He was born in [place] and lives in [place]. He has been to [place] for 17 years. His son, Yariel, is overweight and his daughter, Kristy, is well. 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 He has been disabled since May 06, 2016. He lives at home with his . * Medications:?TakingDivalproe x Sodium ER 500 MG Tablet Extended Release 24 Hour 1 tablet Orally twice a day Metoprolol Succinate ER 50 MG Tablet Extended Release 24 Hour TAKE 1 TABLET BY MOUTH EVERY DAY dexAMETHasone 2 MG Tablet 1 tablet Orally every 12 hrs Gabapentin 300 MG Capsule TAKE 1 CAPSULE BY MOUTH EVERY DAY Oral Atorvastatin Calcium 40 MG Tablet TAKE 1 TABLET BY MOUTH EVERY DAY Medication List reviewed and reconciled with the patientTaking Divalproex Sodium ER 500 MG Tablet Extended Release 24 Hour 1 tablet Orally twice a day Taking Metoprolol Succinate ER 50 MG Tablet Extended Release 24 Hour TAKE 1 TABLET BY MOUTH EVERY DAY Taking dexAMETHasone 2 MG Tablet 1 tablet Orally every 12 hrs Taking Gabapentin 300 MG Capsule TAKE 1 CAPSULE BY MOUTH EVERY DAY Oral Taking Atorvastatin Calcium 40 MG Tablet TAKE 1 TABLET BY MOUTH EVERY DAY Medication List reviewed and reconciled with the patient * Allergies:?No Known Drug All ergyno[Allergies Verified] Objective: * Vitals:?Ht: 67.5. Assessment: * Assessment: 1.?Hypertension - I10 (Prima ry)???Notes :His blood pressure has been normal.? He was given an appointment to return to the office to measure his vital signs.???2.?Hyperlipidemia - E78.5???Notes :Comprehensive blood work with a fasting lipid profile was ordered today.???3.?Obesity - E66.9???Notes :His body mass index is 38. We discussed a weight loss strategy today.? We discussed his diet.? We reviewed his nutrition.???4.?BPH (benign prostatic hyperplasia) - N40.0???Notes :He arises from sleep once a night to urinate.? We have discussed various lifestyle modifications he could make to reduce nocturia.???5.?Anosmia - R43.0???Notes :He has noted no improvement in his anosmia. No other cranial nerve abnormalities have occurred.???6.?Epilepsy - G40.909???Notes :He is compliant with his medication and has had no recent seizures.???7.?Hypercalcemia - E83.52???Notes :His calcium level has normalized. It is now 9.8 and will be observed.??? Plan: * Treatment: 2.?Hyperlipidemia?LAB: PROFILE, FASTING (COMPREHENSIVE METABOLIC) ?LAB: PSA, TOTAL ?LAB: CBC WITH AUTO DIFF ?LAB: Lipid Panel 3.?Obesity?LAB: PROFILE, FASTING (COMPREHENSIVE METABOLIC) ?LAB: PSA, TOTAL ?LAB: CBC WITH AUTO DIFF ?LAB: Lipid Panel 4.?BPH (benign prostatic hyp erplasia)?LAB: PROFILE, FASTING (COMPREHENSIVE METABOLIC) ?LAB: PSA, TOTAL ?LAB: CBC WITH AUTO DIFF ?LAB: Lipid Panel 5.?Others? Continue Atorvastatin Calcium Tablet, 40 MG, TAKE 1 TABLET BY MOUTH EVERY DAY;?Continue Divalproex Sodium ER Tablet Extended Release 24 Hour, 500 MG, 1 tablet, Orally, twice a day;?Continue Metoprolol Succinate ER Tablet Extended Release 24 Hour, 50 MG, TAKE 1 TABLET BY MOUTH EVERY DAY.?? * Procedure Codes:?20491 PHONE E/M BY PHYS 11-20 MIN * Preventive Medicine:? ??Counseling:?Care goal follow-up plan:?Counseling for abnormal BMI given?Yes ?Above Normal BMI Follow-up?Dietary management education, guidance, and counseling * Follow Up:?3 Months (Reason: OV) * Images: * Sign off status: Completed true * Provider:?Gerber Moreno MD Date:?12/2023 Generated for Kita butterfield/Arlen/eTransmitting on:?10/29/2024 06:49 AM EST History and Physical Notes * HPI (History of Present Illness) Category Sub-Category Detail Notes Telehealth [facility]:: {...} [address] [place] [address] Location of patient:: address listed in demographics for today's visit Patient identification confirmed using:: Name, Telehealth method:: Telephone only. Nancy ent not visible to care provider. Consent:: Patient verbally c onsented to treatment, Patient verbally consented to billing insurance company, Patient informed of any privacy concerns related to method of visit Total time spent with patient (mins): 15
--- OUTSIDE RECORDS SUMMARY | 2024-10-29 06:49 | XMS_ITS | Continuity of Care Document ---
Author Organization [facility] Address [address] [facility], 3r d Floor, [address] [place] [address]- Care Team Providers Care Student Dean Name Role Phone Tiffanie QUIROZ, Gerber Meyers Primary Care Physician Encounter [facility] [place] Date(s): 09/03/24 - 10/03/24 [facility] [address] [facility] 3rd Floor, [address] [place] [id number] Encounter Type: Triage Allergies, Adverse Reactions, Alerts Substance Criticality Severity Reaction Reaction Severity Status dexamethasone facial swelling Active Immunizations Given and Recorded Vaccine Date Status Refusal Reason SARS-CoV-2 (COVID-19) mRNA BNT-162b2 vac 03/20/21 Given SARS-CoV-2 (COVID-19) mRNA BNT-162b2 vac 02/27/21 Given pneumococcal 23-valent vaccine 08/07/14 Given tetanus/diphtheria/pertussis, acel(Tdap) 10/12/13 Given tetanus-diphtheria toxoids (Td) 1 01/24/12 Given 1Admin Note: [place] [facility] Medications atorvastatin 40 mg oral tablet 1 tablet = 40 mg, By Mouth, Daily, # 30 tablet, 11 Refills, Maintenance, Tablet, Route to Pharmacy Electronically, [id number], [facility]/pharmacy #1972 Start Date: 09/20/16 Stop Date: 09/15/17 [...] 1:42:00 PM EDT, Route to Pharmacy Electronically, [facility]/pharmacy #1972, Partial fill upon patient request if [...] Refills, Maintenance, 10/19/16 2:04:30 PM EST, ERTablet, [facility]/pharmacy #1972, discontinue amlodipine Start Date: 10/19/16 Stop [...] Team Personnel Name: Gerber Moreno MD Position: [facility] Physician - Oncology Member Role: PCP Address: [address] [place] [address] [address] [place] [address]- Telecom: Name: Elizabeth Escobar RN Position: [facility] RN Member Role: Primary Care Nurse Name: Gustavo Stanton RN Position: [facility] RN Member Role: Primary Care Nurse Name: Shadia Tucker RN Position: [facility] RN Supv Member Role: Primary Care Nurse Name: Lina Jo RN Position: [facility] RN Member Role: Primary Care Nurse Name: Keysha Freeman RN Position: [facility] RN Member Role: Primary Care Nurse Care Team Related Persons Name: HELEN CRENSHAW Insurance Providers Guarantor name: DANIELLA Health Plan Information #: 1 Payer: HMO BLUE IN NETWORK Member Number: NA Policy Number: NA Group Number: NA
--- OUTSIDE RECORDS SUMMARY | 2024-10-29 06:49 | XMS_ITS ---
Author Organization Gerber Moreno III, MD Address [address] [place] [place] [address] Care Team Providers Care Client Care Representative Name Role Phone Gerber Moreno Primary Care Provider REASON FOR VISIT Message Social History Sex Assigned At : Social History Observation Description Sex Assigned At Male Encounters Encounter Location Date Provider Diagnosis Gerber Moreno III, MD [address] [place] [address] [place] [address] 08/06/2024 Gerber Moreno Plan Of Treatment Next Appt Details Provider Name:Gerber Moreno, 11/08/2024 10:30:00 AM, [address] [place] [address] [place], [address], Provider Name:Gerber Moreno, 05/09/2025 09:30:00 AM, [address] [place] [address] [place], [address], Progress Notes * DENTyler HEATON GDOB: 6 (59 yo M)Acc No.[id number]:08/06/2024 Patient:?Tyler CRENSHAW :1965???Age:59 Y???Sex:Male Address:[address] [place] [address], [address] * true * Date:? Generated for Printi /Arlen/Sajanitting on:?10/29/2024 06:49 AM EST
--- OUTSIDE RECORDS SUMMARY | 2024-10-29 06:49 | XMS_ITS ---
Author Organization Gerber Moreno III, MD Address [address] [place] [address] Care Team Providers Care [employer]mat Tanker Driver Name Role Phone Gerber Moreno Primary Care Provider [phone] REASON FOR VISIT Neurology Social History Sex Assigned At : Social History Observation Description Sex Assigned At Male Encounters Encounter Location Date Provider Diagnosis Gerber Moreno III, MD [address] [place] [address] [place] [address] 09/10/2024 Gerber Moreno Plan Of Treatment Next Appt Details Provider Name:Gerber Moreno, 11/08/2024 10:30:00 AM, [address] [place] [address] [place], [address], Provider Name:Gerber Moreno, 05/09/2025 09:30:00 AM, [address] [place] [address] [place], [address], Progress Notes * DENTyler HEATON GDOB: [birth year] (59 yo M)Acc No.[id number]:09/10/2024 Patient:?Tyler CRENSHAW :1965???Age:59 Y???Sex:Male Address:[address] [place] [address], [phone] * true * Date:? Generated for Printi /Arlen/Sajanitting on:?10/29/2024 06:48 AM EST
--- OUTSIDE RECORDS SUMMARY | 2024-10-29 06:49 | XMS_ITS | Patient Health Record ---
Author Organization Gerber Moreno III, MD Address [address] [address] Care Team Providers Care Funeral Service Apprentice Name Role Phone Gerber Moreno Primary Care Provider Allergies Allergen (clinical drug ingredient) Drug/Non Drug Allergy documented on EMR Reaction Allergy Type Onset Date Status No Known Drug Allergy Unknown Drug Allergy Active Results Component Value Reference Range Notes URINE DIP STICK Reviewed date:05/08/2024 11:28:37 AM Interpretation: Performing Lab: Notes/Report: SG 1.025 1.005 - 1.025 pH 5.0 5.0 - 9.0 YAW Negative Negative - NIT Negative Negative - PRO 15 Negative - Trace GLU Negative Negative - KET 5 Negative - UBG 0.2 0.1 - 1.8 MICHELINE 1 0.2 - 1.3 BLD Negative Negative - Complete Blood Count Auto Di ff Reviewed date:11/16/2023 09:00:02 AM Interpretation: Performing Lab:[facility], [address] [place] [phone] Notes/Report: White Blood Count 6.2 4.8-10.8 X10*3/uL Red Blood Count 5.18 4.60-5.80 X10*6/uL Hemoglobin 16.0 14.0-18.0 g/dl Hematocrit 47.8 42.0-52.0 % Mean Corpuscular Volume 92.3 80.0-98.0 fL Mean Corpuscular Hemoglobin 30.9 27.0-33.0 pg Mean Corpuscular HGB Conc 33.5 31.0-36.0 g/dl Red Cell Distribution Width 12.6 11.0-16.0 % Platelet Count 231 160-400 X10*3/uL Mean Platelet Volume 9.4 9.4-12.4 fL Neutrophils Percent Auto 58.4 45-73 % Imm Gran Pct Auto 1.0 0.0-0.4 % Lymphocytes Percent Auto 29.1 20-40 % Monocytes Percent Auto 9.5 2-11 % Eosinophils Percent Auto 1.4 0-4 % Basophils Percent Auto 0.6 0-2 % NRBC Pct Auto 0.0 0.0-0.2 /100WBC Neutrophils Absolute Auto 3.6 2.0-8.3 x10*3/u L Imm Gran Abs Auto 0.06 0.00-0.03 X10*3/uL Lymphocytes Absolute Auto 1.8 1.2-4.9 X10*3/u L Monocytes Absolute Auto 0.6 0.1-1.2 X10*3/uL Eosinophils Absolute Auto 0.1 0.0-0.4 X10*3/u L Basophils Absolute Auto 0.0 0.0-0.2 X10*3/uL NRBC Abs Auto 0.000 0.0-0.012 X10*3/uL Comprehensive [place]. Panel Fa st Reviewed date:11/16/2023 09:00:02 AM Interpretation: Performing Lab:[facility], [address] [place] [phone] Notes/Report: Sodium 142 135-145 mmol/L Potassium 4.8 3.3-5.1 mmol/L Chloride 108 96-108 mmol/L Carbon Dioxide 26 22-29 mmol/L Anion Gap 13 12-20 Blood Urea Nitrogen 14 9-16 mg/dL Creatinine 0.97 0.5-1.4 mg/dL Estimated Glomerular Filt Rate > 60 NOTE: For -[place] individuals, multiply the result by 1.210. Chronic Kidney Disease: Estimated GFR < 60 mL/min/1.73m2 Severe Kidney Disease: Estimated GFR < 15 mL/min/1.73m2 Glucose Fasting 105 60-99 mg/dL A fasting glucose from 100-125 mg/dl is considered impaired (pre-diabetes). Calcium 9.6 8.4-10.2 mg/dL Bilirubin Total 0.7 0.0-1.0 mg/dL Aspartate Amino Transferase 17 5-37 U/L Alanine Aminotransferase 25 0-40 U/L Total Protein 6.7 6.5-8.0 g/dL Albumin Level 4.2 3.5-5.0 g/dL Alkaline Phosphatase 83 39-117 U/L Lipid Panel Reviewed date:11/16/2023 09:00:02 AM Interpretation: Performing Lab:[address] [phone] Notes/Report: Triglycerides 180 <150 mg/dL Desirable Triglyceride: less than 150 mg/dL Borderline High Triglyceride 150-199 mg/dL High Triglyceride: 200-499 mg/dL Very High Triglyceride: greater than or equal to 5OO mg/dL Cholesterol 183 <200 mg/dL Desirable Cholesterol: less than 200 mg/dL Borderline High Cholesterol: 200-239 mg/dL High Cholesterol: greater than 239 mg/dL LDL Cholesterol Calculated 116 <100 mg/dL Desirable LDL: less than 100 mg/dL Near Optimal/Above Optimal LDL: 110-129 mg/dL Borderline High LDL: 130-159 mg/dL High LDL: 160-189 mg/dL Very High LDL: greater than or equal to 190 mg/dL HDL Cholesterol 31 >40 mg/dL Desirable HDL: greater than 40 mg/dL Note: This HDL assay may give artificially low results in patients with liver disease. Prostate Specific Antigen Reviewed date:11/16/2023 09:00:02 AM Interpretation: Performing Lab:[address] [phone] Notes/Report: Prostate Specific Antigen 0.91 <0.05-4.0 ng/mL PSA methodology: Murphy Alinity i Chemiluminescent Microparticle Immunoassay (CMIA) Complete Blood Count Auto Di ff Reviewed date:02/22/2024 09:49:33 AM Interpretation: Performing Lab:[address] [phone] Notes/Report: White Blood Count 6.0 4.8-10.8 X10*3/uL Red Blood Count 5.08 4.60-5.80 X10*6/uL Hemoglobin 16.2 14.0-18.0 g/dl Hematocrit 46.9 42.0-52.0 % Mean Corpuscular Volume 92.3 80.0-98.0 fL Mean Corpuscular Hemoglobin 31.9 27.0-33.0 pg Mean Corpuscular HGB Conc 34.5 31.0-36.0 g/dl Red Cell Distribution Width 12.6 11.0-16.0 % Platelet Count 220 160-400 X10*3/uL Confirmed by smear. Confirmed by smear. Neutrophils Percent Auto 58.8 45-73 % Imm Gran Pct Auto 1.0 0.0-0.4 % Lymphocytes Percent Auto 27.5 20-40 % Monocytes Percent Auto 10.2 2-11 % Eosinophils Percent Auto 2.0 0-4 % Basophils Percent Auto 0.5 0-2 % NRBC Pct Auto 0.0 0.0-0.2 /100WBC Neutrophils Absolute Auto 3.5 2.0-8.3 x10*3/u L Imm Gran Abs Auto 0.06 0.00-0.03 X10*3/uL Lymphocytes Absolute Auto 1.6 1.2-4.9 X10*3/u L Monocytes Absolute Auto 0.6 0.1-1.2 X10*3/uL Eosinophils Absolute Auto 0.1 0.0-0.4 X10*3/u L Basophils Absolute Auto 0.0 0.0-0.2 X10*3/uL NRBC Abs Auto 0.000 0.0-0.012 X10*3/uL White Blood Count 6.0 4.8-10.8 X10*3/uL Red Blood Count 5.08 4.60-5.80 X10*6/uL Hemoglobin 16.2 14.0-18.0 g/dl Hematocrit 46.9 42.0-52.0 % Mean Corpuscular Volume 92.3 80.0-98.0 fL Mean Corpuscular Hemoglobin 31.9 27.0-33.0 pg Mean Corpuscular HGB Conc 34.5 31.0-36.0 g/dl Red Cell Distribution Width 12.6 11.0-16.0 % Platelet Count 220 160-400 X10*3/uL Confirmed by smear. Confirmed by smear. Neutrophils Percent Auto 58.8 45-73 % Imm Gran Pct Auto 1.0 0.0-0.4 % Lymphocytes Percent Auto 27.5 20-40 % Monocytes Percent Auto 10.2 2-11 % Eosinophils Percent Auto 2.0 0-4 % Basophils Percent Auto 0.5 0-2 % NRBC Pct Auto 0.0 0.0-0.2 /100WBC Neutrophils Absolute Auto 3.5 2.0-8.3 x10*3/u L Imm Gran Abs Auto 0.06 0.00-0.03 X10*3/uL Lymphocytes Absolute Auto 1.6 1.2-4.9 X10*3/u L Monocytes Absolute Auto 0.6 0.1-1.2 X10*3/uL Eosinophils Absolute Auto 0.1 0.0-0.4 X10*3/u L Basophils Absolute Auto 0.0 0.0-0.2 X10*3/uL NRBC Abs Auto 0.000 0.0-0.012 X10*3/uL CORRECTED REPORT CORRECTED REPORT Comprehensive [place]. Panel Fa st Reviewed date:02/22/2024 09:49:33 AM Interpretation: Performing Lab:[facility], [address] [place] [phone] Notes/Report: Sodium 140 135-145 mmol/L Potassium 4.9 3.3-5.1 mmol/L Chloride 104 96-108 mmol/L Carbon Dioxide 26 22-29 mmol/L Anion Gap 15 12-20 Blood Urea Nitrogen 12 9-16 mg/dL Creatinine 1.05 0.5-1.4 mg/dL Estimated Glomerular Filt Rate > 60 NOTE: For -[place] individuals, multiply the result by 1.210. Chronic Kidney Disease: Estimated GFR < 60 mL/min/1.73m2 Severe Kidney Disease: Estimated GFR < 15 mL/min/1.73m2 Glucose Fasting 98 60-99 mg/dL Calcium 9.8 8.4-10.2 mg/dL Bilirubin Total 1.2 0.0-1.0 mg/dL Aspartate Amino Transferase 29 5-37 U/L Alanine Aminotransferase 40 0-40 U/L Total Protein 7.1 6.5-8.0 g/dL Albumin Level 4.2 3.5-5.0 g/dL Alkaline Phosphatase 102 39-117 U/L Lipid Panel Reviewed date:02/22/2024 09:49:33 AM Interpretation: Performing Lab:[facility], [address] [place] [phone] Notes/Report: Triglycerides 218 <150 mg/dL Desirable Triglyceride: less than 150 mg/dL Borderline High Triglyceride 150-199 mg/dL High Triglyceride: 200-499 mg/dL Very High Triglyceride: greater than or equal to 5OO mg/dL Cholesterol 198 <200 mg/dL Desirable Cholesterol: less than 200 mg/dL Borderline High Cholesterol: 200-239 mg/dL High Cholesterol: greater than 239 mg/dL LDL Cholesterol Calculated 123 <100 mg/dL Desirable LDL: less than 100 mg/dL Near Optimal/Above Optimal LDL: 110-129 mg/dL Borderline High LDL: 130-159 mg/dL High LDL: 160-189 mg/dL Very High LDL: greater than or equal to 190 mg/dL HDL Cholesterol 32 >40 mg/dL Desirable HDL: greater than 40 mg/dL Note: This HDL assay may give artificially low results in patients with liver disease. SLIDE REVIEW Reviewed date:02/22/2024 09:49:33 AM Interpretation: Performing Lab:[facility], [address] [place] [phone] Notes/Report: SLIDE REVIEW VERIFIED Reason For Referral No Information Medications Medication SIG (Take, Route, Frequency, Duration) Notes Start Date End Date Status Gabapentin 300 MG TAKE 1 CAPSULE BY MO PRH EVERY DAY Oral Active Divalproex Sodium ER 500 MG TAKE 1 TABLE T BY MOUTH TWICE A DAY FOR 90 DAYS for 60 Active Metoprolol Succinate ER 50 MG TAKE 1 TABLET BY MOUTH EVERY DAY Active dexAMETHasone 2 MG 1 tablet Orally ever y 12 hrs 12/24/2022 Active Atorvastatin Calcium 40 MG TAKE 1 TABLET BY MOUTH EVERY DAY Active Immunizations Vaccine Route Administration Date Status Comme nts Influenza no Preserv 3 and > Unknown 09/05/2020 Adminis tered Influenza, quad Unknown 10/04/2022 Administered Social History Tobacco Use: Social History Observation Description Date Details (start date - stop date) Never Smoker NA - NA Sex Assigned At : Social History Observation Description Sex Assigned At Male Tobacco Use/Smoking Question Answer Notes Patient is a nonsmoker Additional Findings: Tobacco Non-User Aggressive non-smoker Alcohol Screen Question Answer Notes Did you have a drink contain ing alcohol in the past year? Yes How often did you have a dri nk containing alcohol in the past year? 2 to 4 times a month (2 points) How many drinks did you have on a typical day when you were drinking in the past year? 1 or 2 drinks (0 point) How often did you have 6 or more drinks on one occasion in the past year? Never (0 point) Points 2 Interpretation Negative Problems Problem Type SNOMED Code ICD Code Onset Dates Problem Status W/U Status Risk Notes Problem 53461646 Hyperlipidemia (E78.5) Active confirmed Comprehensive blood work with a fasting lipid profile was ordered today. Problem 327896627 Obesity (E66.9) Active confirmed His body mass index is 38. We discussed a weight loss strategy today. We discussed his diet. We reviewed his nutrition. Problem 63450912 Hypertension (I10) Active confirmed His blood pressure has been normal. He was given an appointment to return to the office to measure his vital signs. Problem 35435149 Epilepsy (G40.909) Active confirmed He is compliant with his medication and has had no recent seizures. Problem 57879709 Hypercalcemia (E83.52) Active confirmed His calcium level has normalized. It is now 9.8 and will be observed. Problem 04073498 Other chronic pain (G89.29) Active confirmed The level of chronic back pain is acceptable this time. He is off of the dexamethasone. He'll be followed carefully. He will avoid heavy lifting. He will use heat, rest, ibuprofen and acetaminophen. Problem 848883709172590 Lumbago with sciatica, right side (M54.41) Active confirmed The back pain is resolving. Problem 635143056 Lumbago with sciatica, left side (M54.42) Active confirmed The low back pain with radiation down both legs is much improved Problem 75877821 Anosmia (R43.0) Active confirmed He has noted no improvement in his anosmia. No other cranial nerve abnormalities have occurred. Problem Benign prostatic hyperplasia (488884866) BPH (benign prostatic hyperplasia) (N40.0) Active confirmed He arises from sleep once a night to urinate. We have discussed various lifestyle modifications he could make to reduce nocturia. Problem 197633792 Traumatic brain injury (S06.9X9A) Active confirmed His neurologica l functioning and mental status have not changed. The conversation today was pleasant. He is fluent. No changes have been made in his regimen. Problem 383561904 Cerebral hemorrhage (I61.9) Active confirmed He has a histor y of traumatic brain injury and cerebral hemorrhage. He has had no further neurological issues of seizures since his last visit. He has recovered very well from this injury. Problem 5564996 Libido, decreased (R68.82) Active confirmed His libido continues to be low. His symptomatically with each other and do not see this as her current problem. Vital Signs Heart Rate 70 /min 05/08/2024 Temperature 98.0 degrees Fahrenheit 05/08/2024 Blood pressure diastolic 83 mm Hg 05/08/2024 Height 67.5 in 08/08/2024 Blood pressure systolic 137 mm Hg 05/08/2024 Weight 247 lbs 05/08/2024 BMI 38.11 kg/m2 05/08/2024 Encounters Encounter Location Date Provider Diagnosis Gerber Moreno III, MD [address] [place] [address] [place] [phone] 11/22/2023 Gerber Moreno Hypertension I10 ; Hyperlipidemia E78.5 ; Hypercalcemia E83.52 ; Obesity E66.9 ; Epilepsy G40.909 ; Anosmia R43.0 ; Traumatic brain injury S06.9X9A ; Lumbago with sciatica, left side M54.42 and Lumbago with sciatica, right side M54.41 Gerber Moreno III, MD [address] [place] [address] [place] [phone] 02/08/2024 Gerber Moreno Hypertension I10 ; Subconjunctival hemorrhage of left eye H11.32 ; Obesity E66.9 ; Anosmia R43.0 ; Epilepsy G40.909 and Hyperlipidemia E78.5 Gerber Moreno III, MD [address] [place] [address] [place] [phone] 02/22/2024 Gerber Moreno Hypertension I10 ; Tremor of both hands R25.1 ; Hyperlipidemia E78.5 ; Obesity E66.9 ; Epilepsy G40.909 ; Traumatic brain injury S06.9X9A and Hypercalcemia E83.52 Gerber Moreno III, MD [address] [place] [address] [place] [phone] 05/08/2024 Gerber Moreno Hypertension I10 ; Hyperlipidemia E78.5 ; Obesity E66.9 ; Anosmia R43.0 ; Epilepsy G40.909 and Hypercalcemia E83.52 Gerber Moreno III, MD [address] [place] [address] [place] [phone] 08/08/2024 Gerber Moreno Hypertension I10 ; Hyperlipidemia E78.5 ; Obesity E66.9 ; BPH (benign prostatic hyperplasia) N40.0 ; Anosmia R43.0 ; Epilepsy G40.909 and Hypercalcemia E83.52 Gerber Moreno III, MD [address] [place] [address] [place] [phone] 11/25/2023 Gerber Moreno III, MD [address] [place] [address] [place] [phone] 03/26/2024 Gerber Moreno III, MD [address] [place] [address] [place] [phone] 08/06/2024 Gerber Moreno III, MD [address] [place] [address] [place] [phone] 09/10/2024 Gerber Moreno Assessments Encounter Date Diagnosis (ICD Code) Assessment Notes Treat ment Notes Treatment Clinical Notes 11/22/2023 Hyperlipidemia (ICD-10 - E78.5) His lipid values are in the normal range and no change in his regimen was necessary today. He will continue his efforts at aggressive weight loss and sodium restriction. 11/22/2023 Hypertension (ICD-10 - I10) His blood pressure remains in the normal range. No change in his regimen was necessary. I recommended sodium restriction and continued weight loss. 02/08/2024 Hypertension (ICD-10 - I10) His blood pressure remains in the normal range. No change in his regimen was necessary. I recommended sodium restriction and continued weight loss. 02/08/2024 Subconjunctival hemorrhage of left eye (ICD-10 - H11.32) He had his were reassured that this would resolve in a week. No specific therapy is indicated. 02/22/2024 Hypertension (ICD-10 - I10) His blood pressure remains in the normal range. No change in his regimen was necessary. I recommended sodium restriction and continued weight loss. 02/22/2024 Tremor of both hands (ICD-10 - R25.1) This appears to be an essential tremor which is worse in the right hand the left hand. Does not appear to be disabling. He will have a neurology consult in April of this year. 05/08/2024 Hyperlipidemia (ICD-10 - E78.5) His lipid values are in the normal range and no change in his regimen was necessary today. He will continue his efforts at aggressive weight loss and sodium restriction. 05/08/2024 Hypertension (ICD-10 - I10) His blood pressure remains in the normal range at 137/83. No change in his regimen was necessary. I recommended sodium restriction and continued weight loss. 08/08/2024 Hyperlipidemia (ICD-10 - E78.5) Comprehensive blood work with a fasting lipid profile was ordered today. 08/08/2024 Hypertension (ICD-10 - I10) His blood pressure has been normal. He was given an appointment to return to the office to measure his vital signs. 11/22/2023 Hypercalcemia (ICD-1 0 - E83.52) His calcium level has normalized. It is now 9.6 and will be observed. 02/08/2024 Obesity (ICD-10 - E66.9) He is no longer taking dexamethasone. He has gained 3 pounds since his last visit. We reviewed his diet and nutrition and weight loss strategy. We made a plan to lose weight at a rate of one half of a pound per week through physical activity and a diet restricted in fat calories and sodium. 02/22/2024 Hyperlipidemia (ICD-10 - E78.5) His lipid values are in the normal range and no change in his regimen was necessary today. He will continue his efforts at aggressive weight loss and sodium restriction. 05/08/2024 Obesity (ICD-10 - E66.9) He is no longer taking dexamethasone. He has gained 3 pounds since his last visit. We reviewed his diet and nutrition and weight loss strategy. We made a plan to lose weight at a rate of one half of a pound per week through physical activity and a diet restricted in fat calories and sodium. 08/08/2024 Obesity (ICD-10 - E66.9) His body mass index is 38. We discussed a weight loss strategy today. We discussed his diet. We reviewed his nutrition. 11/22/2023 Obesity (ICD-10 - E66.9) He is no longer taking dexamethasone. He has gained 3 pounds since his last visit. We reviewed his diet and nutrition and weight loss strategy. We made a plan to lose weight at a rate of one half of a pound per week through physical activity and a diet restricted in fat calories and sodium. 02/08/2024 Anosmia (ICD-10 - R43.0) He has noted no improvement in his anosmia. No other cranial nerve abnormalities have occurred. 02/22/2024 Obesity (ICD-10 - E66.9) He is no longer taking dexamethasone. He has gained 3 pounds since his last visit. We reviewed his diet and nutrition and weight loss strategy. We made a plan to lose weight at a rate of one half of a pound per week through physical activity and a diet restricted in fat calories and sodium. 05/08/2024 Anosmia (ICD-10 - R43.0) He has noted no improvement in his anosmia. No other cranial nerve abnormalities have occurred. 08/08/2024 BPH (benign prostati c hyperplasia) (ICD-10 - N40.0) He arises from sleep once a night to urinate. We have discussed various lifestyle modifications he could make to reduce nocturia. 11/22/2023 Epilepsy (ICD-10 - G40.909) He is compliant with his medication and has had no recent seizures. 02/08/2024 Epilepsy (ICD-10 - G40.909) He is compliant with his medication and has had no recent seizures. 02/22/2024 Epilepsy (ICD-10 - G40.909) He is compliant with his medication and has had no recent seizures. 05/08/2024 Epilepsy (ICD-10 - G40.909) He is compliant with his medication and has had no recent seizures. 08/08/2024 Anosmia (ICD-10 - R43.0) He has noted no improvement in his anosmia. No other cranial nerve abnormalities have occurred. 11/22/2023 Anosmia (ICD-10 - R43.0) He has noted no improvement in his anosmia. No other cranial nerve abnormalities have occurred. 02/08/2024 Hyperlipidemia (ICD-10 - E78.5) His lipid values are in the normal range and no change in his regimen was necessary today. He will continue his efforts at aggressive weight loss and sodium restriction. 02/22/2024 Traumatic brain injury (ICD-10 - S06.9X9A) His neurological functioning and mental status have not changed. The conversation today was pleasant. He is fluent. No changes have been made in his regimen. 05/08/2024 Hypercalcemia (ICD-1 0 - E83.52) His calcium level has normalized. It is now 9.8 and will be observed. 08/08/2024 Epilepsy (ICD-10 - G40.909) He is compliant with his medication and has had no recent seizures. 11/22/2023 Traumatic brain injury (ICD-10 - S06.9X9A) His neurological functioning and mental status have not changed. The conversation today was pleasant. He is fluent. No changes have been made in his regimen. 02/22/2024 Hypercalcemia (ICD-1 0 - E83.52) His calcium level has normalized. It is now 9.8 and will be observed. 08/08/2024 Hypercalcemia (ICD-1 0 - E83.52) His calcium level has normalized. It is now 9.8 and will be observed. 11/22/2023 Lumbago with sciatica, left side (ICD-10 - M54.42) The low back pain with radiation down both legs is much improved 11/22/2023 Lumbago with sciatica, right side (ICD-10 - M54.41) The back pain is resolving. Plan Of Treatment Pending Test Test Name Order Date ELECTROLYTES 12/25/2019 PROFILE, FASTING (COMPREHENSIVE METABOLI C) 01/28/2022 PROFILE, FASTING (COMPREHENSIVE METABOLI C) 07/27/2022 PROFILE, FASTING (COMPREHENSIVE METABOLI C) 08/08/2024 PROFILE, FASTING (COMPREHENSIVE METABOLI C) 12/25/2019 PROFILE, FASTING (COMPREHENSIVE METABOLI C) 12/09/2020 PROFILE, FASTING (COMPREHENSIVE METABOLI C) 11/10/2021 PROFILE, FASTING (COMPREHENSIVE METABOLI C) 05/25/2023 PROFILE, FASTING (COMPREHENSIVE METABOLI C) 08/08/2020 PROFILE, FASTING (COMPREHENSIVE METABOLI C) 08/24/2019 PROFILE, FASTING (COMPREHENSIVE METABOLI C) 11/22/2023 PROFILE, FASTING (COMPREHENSIVE METABOLI C) 07/10/2021 PROFILE, FASTING (COMPREHENSIVE METABOLI C) 03/09/2021 PROFILE, FASTING (COMPREHENSIVE METABOLI C) 09/06/2023 PROFILE, RANDOM (COMPREHENSIVE METABOLIC ) 04/24/2020 LIPID PANEL 12/25/2019 LIPID PANEL 12/09/2020 LIPID PANEL 11/10/2021 LIPID PANEL 05/25/2023 LIPID PANEL 08/08/2020 LIPID PANEL 08/24/2019 LIPID PANEL 07/10/2021 LIPID PANEL 04/24/2020 LIPID PANEL 03/09/2021 VALPROIC ACID (VPA, DEPAKOTE) 07/27/2022 PSA, TOTAL 09/06/2023 PSA, TOTAL 03/09/2021 PSA, TOTAL 08/08/2024 PSA, TOTAL 07/27/2022 PSA, TOTAL 08/08/2020 CBC w DIFF 07/10/2021 CBC w DIFF 04/24/2020 CBC w DIFF 01/28/2022 CBC w DIFF 09/06/2023 CBC w DIFF 03/09/2021 CBC w DIFF 12/25/2019 CBC w DIFF 12/09/2020 CBC w DIFF 11/10/2021 CBC w DIFF 05/25/2023 CBC w DIFF 07/27/2022 CBC w DIFF 11/22/2023 CBC w DIFF 08/24/2019 CBC w DIFF 08/08/2020 FACTOR V LEIDEN 01/07/2020 XR RIBS RT + PA CHEST 04/30/2022 XR RIBS RT 04/30/2022 VITAMIN D 25-OH TOTAL 08/08/2020 VITAMIN D 25-OH TOTAL 03/09/2021 VITAMIN D 25-OH TOTAL 11/10/2021 EEG 01/11/2023 CBC WITH AUTO DIFF 08/08/2024 Lipid Panel 01/28/2022 Lipid Panel 09/06/2023 Lipid Panel 08/08/2024 Lipid Panel 07/27/2022 Lipid Panel 11/22/2023 XR ribs RT 2V 04/30/2022 Next Appt Details Provider Name:Gerber Moreno, 11/08/2024 10:30:00 AM, [address] [place] [address] , PAT Garza, [place], [phone], Provider Name:Gerber Moreno, 05/09/2025 09:30:00 AM, [address] [place] [address] [id number], [place], [phone], Insurance Providers Payer Name Payer Address Payer Phone Subscriber Number Group Number Insured Name Patient Relationship to Insured Coverage Start Date Coverage End Date [facility] [address] [place], [place] [id number] Tyler Fitzgerald Self - patient is the insured Medical (General) History Medical History History ICD Code obesity hypertension hyperlipidemia 2013 traumatic brain injury anosmia posttrauma posttraumatic epilepsy intracranial and intraparenchymal brain hemorrhage 2013 right-sided low back pain granted disability May 06, 2016 tubular adenomas x 2, January 2017, colono scopy Covid 19 infection July 2024 Surgical History Surgery Date(Month/Year) Colonoscopy 04/2022 extraction all mandibular teeth 04/2018 colonoscopy, two adenomatous polyps 01/24 17 feeding tube insertion after traumatic b rain injury 2013
--- OUTSIDE RECORDS SUMMARY | 2024-10-29 06:49 | XMS_ITS | Continuity of Care Document ---
Author Organization [facility] Address [address], [address], [address] [place] [id number]- Care Team Providers Care Product Marketing Programs Manager Name Role Phone Tiffanie QUIROZ, Gerber Meyers Primary Care Physician [phone] [place] [facility] [place]): [place] - 10/03/24 [facility] [address] Floor, [address] [place] [id number] Encounter Type: Triage Allergies, Adverse Reactions, Alerts Substance Criticality Severity Reaction Reaction Severity Status dexamethasone facial swelling Active Immunizations Given and Recorded Vaccine Date Status Refusal Reason SARS-CoV-2 (COVID-19) mRNA BNT-162b2 vac 03/20/21 Given SARS-CoV-2 (COVID-19) mRNA BNT-162b2 vac 02/27/21 Given pneumococcal 23-valent vaccine 08/07/14 Given tetanus/diphtheria/pertussis, acel(Tdap) 10/12/13 Given tetanus-diphtheria toxoids (Td) 1 01/24/12 Given 1Admin Note: [facility] Medications atorvastatin 40 mg oral tablet 1 tablet = 40 mg, By Mouth, Daily, # 30 tablet, 11 Refills, Maintenance, Tablet, Route to Pharmacy Electronically, [id number], [facility]/pharmacy #1972 Start Date: 09/20/16 Stop Date: [...] 1:42:00 PM EDT, Route to Pharmacy Electronically, [facility]/pharmacy #1972, Partial fill upon patient request [...] Refills, Maintenance, 10/19/16 2:04:30 PM EST, ERTablet, [facility]/pharmacy #1972, discontinue amlodipine Start Date: 10/19/16 [...] Team Personnel Name: Gerber Moreno MD Position: [facility] Physician - Oncology Member Role: PCP Address: [address] [place] [address] [address] [place] [address]- Telecom: Name: Elizabeth Escobar RN Position: [facility] RN Member Role: Primary Care Nurse Name: Gustavo Stanton RN Position: [facility] RN Member Role: Primary Care Nurse Name: Shadia Tucker RN Position: [facility] RN Supv Member Role: Primary Care Nurse Name: Lina Jo RN Position: [facility] RN Member Role: Primary Care Nurse Name: Keysha Freeman RN Position: [facility] RN Member Role: Primary Care Nurse Care Team Related Persons Name: HELEN CRENSHAW Insurance Providers Guarantor name: DANIELLA Health Plan Information #: 1 Payer: HMO [employer] Member Number: NA Policy Number: NA Group Number: NA
[2024-10-29 07:03] LABS: MANUAL DIFF FLAG NO
[2024-10-29 07:46] LABS: Basophils Percent Auto 0.5 % (0-2); Eosinophils Absolute Auto 0.2 X10*3/uL (0.0-0.4); Eosinophils Percent Auto 3.6 % (0-4); Hematocrit 49.7 % (42.0-52.0); Hemoglobin 16.7 g/dl (14.0-18.0); Imm Gran Abs Auto 0.04 X10*3/uL (0.00-0.03); Imm Gran Pct Auto 0.6 % (0.0-0.4); Lymphocytes Percent Auto 29.6 % (20-40); Mean Corpuscular HGB Conc 33.6 g/dl (31.0-36.0); Mean Corpuscular Volume 92.4 fL (80.0-98.0); Mean Platelet Volume 9.2 fL (9.4-12.4); Monocytes Absolute Auto 0.6 X10*3/uL (0.1-1.2); Monocytes Percent Auto 9.3 % (2-11); Neutrophils Absolute Auto 3.8 x10*3/uL (2.0-8.3); Neutrophils Percent Auto 56.4 % (45-73); Platelet Count 235 X10*3/uL (160-400); Red Blood Count 5.38 X10*6/uL (4.60-5.80); Red Cell Distribution Width 12.7 % (11.0-16.0); White Blood Count 6.7 X10*3/uL (4.8-10.8)
[2024-10-29 09:03] LABS: Alanine Aminotransferase 50 U/L (0-40); Albumin Level 4.3 g/dL (3.5-5.0); Alkaline Phosphatase 103 U/L (39-117); Anion Gap 14 (12-20); Aspartate Amino Transferase 40 U/L (5-37); Bilirubin Total 0.8 mg/dL (0.0-1.0); Blood Urea Nitrogen 14 mg/dL (9-16); Calcium 9.4 mg/dL (8.4-10.2); Carbon Dioxide 29 mmol/L (22-29); Chloride 104 mmol/L (96-108); Cholesterol 196 mg/dL (<200); Estimated Glomerular Filt Rate > 60; Glucose Fasting 101 mg/dL (60-99); HDL Cholesterol 31 mg/dL (>40); LDL Cholesterol Calculated 119 mg/dL (<100); Potassium 4.5 mmol/L (3.3-5.1); Sodium 142 mmol/L (135-145); Total Protein 7.2 g/dL (6.5-8.0); Triglycerides 230 mg/dL (<150)
[2024-10-29 09:10] LABS: Prostate Specific Antigen 0.79 ng/mL (<0.05-4.0)
== END 2024-10-29 06:47 | disposition home or self-care (01) ==
LOC: HO.LAB 06:46
PROVIDERS: PCP Internal Medicine Medical Oncology; Visit Provider Internal Medicine Medical Oncology
DX: E78.5 Hyperlipidemia, unspecified (principal); E66.9 Obesity, unspecified; N40.0 Benign prostatic hyperplasia without lower urinary tract symptoms; Z12.5 Encounter for screening for malignant neoplasm of prostate
CPT/HCPCS: 36415; 80053; 80061; 84153; 85025

== ENCOUNTER 2025-05-01 07:27 | Outpatient (REF) | payer BC, SELFPAY ==
--- OUTSIDE RECORDS SUMMARY | 2025-02-06 06:15 | XMS_ITS ---
Author Organization Gerber Moreno III, MD Address [address] [place] [address] [address] [place] [address] Care Team Providers Care Caterers Helper Name Role Phone Gerber Moreno Primary Care Provider [phone] Allergies Allergen (clinical drug ingredient) Drug/Non Drug Allergy documented on EMR Reaction Allergy Type Onset Date Status No Known Drug Allergy Unknown Drug Allergy Active REASON FOR VISIT Acute constipation, Traumatic brain injury, Hypertension, Hyperlipidemia, Obesity, Epilepsy, Lumbarradiculopathy Medications Medication SIG (Take, Route, Frequency, Duration) Notes Start Date End Date Status Lacosamide 50 MG Oral Act cam Atorvastatin Calcium 40 MG TAKE 1 TABLET BY MOUTH EVERY DAY Active dexAMETHasone 2 MG 1 tablet Orally ever y 12 hrs 12/24/2022 Active Gabapentin 300 MG TAKE 1 CAPSULE BY MO UTH EVERY DAY Oral Active Divalproex Sodium ER 500 MG TAKE 1 TABLE T BY MOUTH TWICE A DAY FOR 90 DAYS Active Metoprolol Succinate ER 50 MG TAKE 1 TABLET BY MOUTH EVERY DAY Active Social History Tobacco Use: Social History Observation Description Date Details (start date - stop date) Never Smoker NA - NA Sex Assigned At : Social History Observation Description Sex Assigned At Male Tobacco Use/Smoking Question Answer Notes Patient is a nonsmoker Additional Findings: Tobacco Non-User Aggressive non-smoker Problems Problem Type SNOMED Code ICD Code Onset Dates Problem Status W/U Status Risk Notes Problem [id number] Acute constipation (K59.00) Active confirmed He will he had fiber to his diet in the form of bran cereal and green leafy vegetables . He will take a tablet of senna twice a day until his bowels move. He will take a daily dose of 17 g of MiraLax. Vital Signs Temperature 98.1 degrees Fahrenheit 02/07/20 25 Blood pressure systolic 132 mm Hg 02/07/20 25 Blood pressure diastolic 79 mm Hg 025 Heart Rate 73 /min 02/06/2025 Height 67.5 in 02/06/2025 Weight 232 lbs 02/06/2025 BMI 35.8 kg/m2 02/06/2025 Encounters Encounter Location Date Provider Diagnosis Gerber Moreno III, MD [address] [place] [address] [place] [address] 02/06/2025 Gerber Moreno Hypertension I10 ; A cute constipation K59.00 ; Hyperlipidemia E78.5 ; BPH (benign prostatic hyperplasia) N40.0 ; Obesity E66.9 ; Anosmia R43.0 and Epilepsy G40.909 Assessments Encounter Date Diagnosis (ICD Code) Assessment Notes Treat ment Notes Treatment Clinical Notes 02/06/2025 Hypertension (ICD-10 - I10) His blood pressure has been normal. He was given an appointment to return to the office to measure his vital signs.The value was 132/79. 02/06/2025 Acute constipation (ICD-10 - K59.00) He will he had fiber to his diet in the form of bran cereal and green leafy vegetables. He will take a tablet of senna twice a day until his bowels move. He will take a daily dose of 17 g of MiraLax. 02/06/2025 Hyperlipidemia (ICD-10 - E78.5) Comprehensive blood work has been ordered. 02/06/2025 BPH (benign prostati c hyperplasia) (ICD-10 - N40.0) He arises from sleep once or twice a night. We have discussed lifestyle modifications that he could make to reduce nocturia. 02/06/2025 Obesity (ICD-10 - E66.9) His body mass index is 36. We reviewed his nutrition.We reviewed his weight loss. Plan. He will continue to lose weight. 02/06/2025 Anosmia (ICD-10 - R43.0) He has noted no improvement in his anosmia. No other cranial nerve abnormalities have occurred. 02/06/2025 Epilepsy (ICD-10 - G40.909) He is compliant with his medication and has had no recent seizures. Plan Of Treatment Medication Medication Name Sig Start Date Stop Date Notes Lacosamide 50 MG Oral Atorvastatin Calcium 40 MG TAKE 1 TABLET BY MOUTH EVERY DAY dexAMETHasone 2 MG 1 tablet Orally every 12 hrs 12/24/2022 Gabapentin 300 MG TAKE 1 CAPSULE BY MO UTH EVERY DAY Oral Divalproex Sodium ER 500 MG TAKE 1 TABLE T BY MOUTH TWICE A DAY FOR 90 DAYS Metoprolol Succinate ER 50 MG TAKE 1 TAB LET BY MOUTH EVERY DAY Pending Test Test Name Order Date PROFILE, FASTING (COMPREHENSIVE METABOLI C) 02/06/2025 LIPID PANEL 02/06/2025 PSA, TOTAL 02/06/2025 CBC w DIFF 02/06/2025 Next Appt Details Follow Up: 4 Months, Reason: ov review labs Provider Name:Gerber Gottirne, 05/09/2025 09:30:00 AM, [address] [place] [address], [id number], Progress Notes * Tyler CRENSHAW GDOB: 6 (59 yo M)Acc No.[id number]:02/06/2025 Progress Notes Patient: Tyler JACKSON Provider: Shannon Moreno MD :1965 A ge:59 Y S ex:Male Date:02/06/2025 Address:[address] [place], [place] [id number] Subjective: * Chief Complaints: * A cute constipationTraumatic brain injuryHypertensionHyperlipidemiaObesityEpilepsyLumbar radiculopathy * HPI: C OVID-19 Screening: Neena briceño comes in today complaining of being acutely constipated over the last several weeks. He normally moves his bowels once a day but lately has been moving them every third day. After the initial stool the stool can be a liquid and watery. He has had no rectal bleeding or pain. His back is beginning to hurt him as well. His is talking about having cortisone injections.He is willing to consider this. His examination today was unremarkable. Questions H ave you had any new onset fever, chills, cough, congestion, sore throat, shortness of breath, muscle aches? N o * ROS: G eneral/Constitutional: pain o nly normal aches and pains. C hills d enies.?Fatigue a dmits. F ever d enies. E NT: Decreased hearing d enies. R espiratory: Cough d enies. C ardiovascular: Chest pain with exertion d enies. D yspnea on exertion?denies. S hortness of breath d enies. G astrointestinal: Constipation t hat is moderate, Recently. D ecreased appetite d enies. D iarrhea d enies. H eartburn d enies. N ausea d enies.?Rectal bleeding d enies. V omiting d enies. H ematology: bruising d enies. p etechiae d enies. S wollen glands n one have been noted. G enitourinary: Frequent urination o nce a night. M usculoskeletal: Muscle aches d enies. P ainful joints L umbar spine. S ciatica d enies. W eakness d enies. S kin: Itching d enies. R shannan d enies. S kin lesion(s)?denies. N eurologic: Difficulty speaking d enies. D izziness d enies.?Headache d enies. L ow back pain t hat is chronic. P sychiatric: Depressed mood w hich is mild. * Medical History: * Surgical History: f eeding tube insertion after traumatic brain injury 2013colonoscopy, two adenomatous polyps 01/2017extraction all mandibular teeth 04/2018Colonoscopy 04/2022No history * Hospitalization/Major Diagno stic Procedure: N o history * Family History: F ather: 42 yrs, CAD, myocardial infarction, diagnosed with CVD. M other: 72 yrs, of heart failure, copd, diagnosed with CVD. C hildren: diagnosed with HTN. 1 brother(s) , 2 sister(s) - healthy. 1 son(s) , 1 daughter(s) - healthy. . He has a brother, Jewel, and a sister, Briana, who are alive and well and healthy. His children are healthy as well. There is no family history of breast cancer or ovarian cancer. There is a strong family history of cardiovascular disease. There is no family history of mental illness, substance use disorder or addiction. * Social History: T obacco Use: T obacco Use/Smoking Earle dow is a n onsmoker A dditional Findings: Tobacco Non-User A ggressive non-smoker Neena briceño was born in [place] and lives in [place]. He has been to [place] for 17 years. His son, Yariel, is overweight and his daughter, Kristy, is well. 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 He has been disabled since May 06, 2016. He lives at home with his . * Medications: T akingAtorvastatin Calcium 40 MG Tablet TAKE 1 TABLET BY MOUTH EVERY DAY dexAMETHasone 2 MG Tablet 1 tablet Orally every 12 hrs Gabapentin 300 MG Capsule TAKE 1 CAPSULE BY MOUTH EVERY DAY Oral Divalproex Sodium ER 500 MG Tablet Extended Release 24 Hour TAKE 1 TABLET BY MOUTH TWICE A DAY FOR 90 DAYS Lacosamide 50 MG Tablet Oral Metoprolol Succinate ER 50 MG Tablet Extended Release 24 Hour TAKE 1 TABLET BY MOUTH EVERY DAY Medication List reviewed and reconciled with the patientTaking Atorvastatin Calcium 40 MG Tablet TAKE 1 TABLET BY MOUTH EVERY DAY Taking dexAMETHasone 2 MG Tablet 1 tablet Orally every 12 hrs Taking Gabapentin 300 MG Capsule TAKE 1 CAPSULE BY MOUTH EVERY DAY Oral Taking Divalproex Sodium ER 500 MG Tablet Extended Release 24 Hour TAKE 1 TABLET BY MOUTH TWICE A DAY FOR 90 DAYS Taking Lacosamide 50 MG Tablet Oral Taking Metoprolol Succinate ER 50 MG Tablet Extended Release 24 Hour TAKE 1 TABLET BY MOUTH EVERY DAY Medication List reviewed and reconciled with the patient * Allergies: N o Known Drug Allergyno[Allergies Verified] Objective: * Vitals: H t: 67.5, Wt: 232, BMI:35.8, BP: 132/79, HR: 73, Temp: 98.1, Wt-k.23. * Examination: G eneral Examination: GENERAL APPEARANCE: p leasant, well nourished, well developed, in no acute distress, calm and relaxed, obese, man. HEAD: a traumatic, normocephalic. EYES: e papo, perrla, anicteric, conjugate. EARS: n ormal. NOSE: s eptum intact. ORAL CAVITY: n ormal, unremarkable. NECK/THYROID: n o jugular venous distention, no carotid bruit, thyroid normal. LYMPH NODES: n o enlarged lymph nodes,spleen normal. SKIN: n o suspicious lesions, anicteric. HEART: n o clicks, gallops, murmurs, or rubs, regular rhythm, S1, S2 normal, no s3, or vascular bruits. LUNGS: c lear to auscultation . BREASTS: no masses palpable bilaterally. ABDOMEN: b owel sounds normal, no ascites, no organomegaly, no mass, centripital obesity. RECTAL EXAM: n ot examined. MUSCULOSKELETAL: e xtremities unremarkable, no clubbing, cyanosis or edema. PERIPHERAL PULSES: n ormal. NEUROLOGIC: a lert and oriented, cranial nerves 2-12 grossly intact, deep tendon reflexes 2+ symmetrical, motor strength normal upper and lower extremities, sensory exam intact, Moderate cognitive impairments from traumatic brain injury. PSYCH: a lert, oriented, Mild to moderate memory defects.? Assessment: * Assessment: 1. A cute constipation - K59.00 (Primary) N otes :He will he had fiber to his diet in the form of bran cereal and green leafy vegetables. He will take a tablet of senna twice a day until his bowels move. He will take a daily dose of 17 g of MiraLax. 2 . H ypertension - I10 N otes :His blood pressure has been normal. He was given an appointment to return to the office to measure his vital signs.The value was 132/79. 3 . H yperlipidemia - E78.5 N otes :Comprehensive blood work has been ordered. 4 . B PH (benign prostatic hyperplasia) - N40.0 N otes :He arises from sleep once or twice a night. We have discussed lifestyle modifications that he could make to reduce nocturia. 5 . O besity - E66.9 N otes :His body mass index is 36. We reviewed his nutrition.We reviewed his weight loss. Plan. He will continue to lose weight. 6 . A nosmia - R43.0 N otes :He has noted no improvement in his anosmia. No other cranial nerve abnormalities have occurred. 7 . E pilepsy - G40.909 N otes :He is compliant with his medication and has had no recent seizures. Plan: * Treatment: 2. H yperlipidemia L AB: PROFILE, FASTING (COMPREHENSIVE METABOLIC) L AB: LIPID PANEL L AB: PSA, TOTAL L AB: CBC w DIFF 3. B PH (benign prostatic hyperplasia) L AB: PROFILE, FASTING (COMPREHENSIVE METABOLIC) L AB: LIPID PANEL L AB: PSA, TOTAL L AB: CBC w DIFF 4. O thers Continue Metoprolol Succinate ER Tablet Extended Release 24 Hour, 50 MG, TAKE 1 TABLET BY MOUTH EVERY DAY; C ontinue Atorvastatin Calcium Tablet, 40 MG, TAKE 1 TABLET BY MOUTH EVERY DAY; C ontinue Divalproex Sodium ER Tablet Extended Release 24 Hour, 500 MG, TAKE 1 TABLET BY MOUTH TWICE A DAY FOR 90 DAYS; C ontinue Lacosamide Tablet, 50 MG, Oral. * Procedure Codes: * Preventive Medicine: Counseling: C are goal follow-up plan: Counseling for abnormal BMI given Y es Above Normal BMI Follow-up D ietary management education, guidance, and counseling, Dietary needs education, Exercise promotion: strength training, Exercise promotion: stretching, Feeding regime, Giving encouragement to exercise, Lifestyle education regarding diet, Nutrition / feeding management, Nutrition therapy, Prescribed activity/exercise education, Prescribed diet education, Prescribed dietary intake, Special diet education, Weight monitoring , Intervention, Order not done: Medical or Other reason not done * Follow Up: 4 Months (Reason: ov review labs) * Images: * Sign off status: Completed true * Provider: Shannon Moreno MD Date: 02/06/2025 Generated for Kita butterfield/Arlen/Sajanitting on: 05/01/2025 07:29 AM EDT History and Physical Notes * HPI (History of Present Illness) Category Sub-Category Detail Notes COVID-19 Screening Questions Have you had any new onset fever, chills, cough, congestion, sore throat, shortness of breath, muscle aches?: No Examination Category Sub-Category Detail Notes General Examination GENERAL APPEARANCE: pleasant , well nourished, well developed, in no acute distress, calm and relaxed, obese, man HEAD: atraumatic, normocep halic EYES: eomi, perrla, anicte marcelino, conjugate EARS: normal NOSE: septum intact NECK/THYROID: no jugular venous di stention, no carotid bruit, thyroid normal HEART: no clicks, gallops, murmurs, or rubs, regular rhythm, S1, S2 normal, no s3, or vascular bruits LUNGS: clear to auscultatio n ABDOMEN: bowel sounds normal, no ascites, no organomegaly, no mass, centripital obesity NEUROLOGIC: alert and oriented, cranial nerves 2-12 grossly intact, deep tendon reflexes 2+ symmetrical, motor strength normal upper and lower extremities, sensory exam intact, 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
[2025-05-01 07:36] LABS: MANUAL DIFF FLAG NO
[2025-05-01 08:13] LABS: Basophils Percent Auto 0.6 % (0-2); Eosinophils Absolute Auto 0.4 X10*3/uL (0.0-0.4); Eosinophils Percent Auto 5.3 % (0-4); Hematocrit 49.2 % (42.0-52.0); Hemoglobin 16.2 g/dl (14.0-18.0); Imm Gran Abs Auto 0.05 X10*3/uL (0.00-0.03); Imm Gran Pct Auto 0.8 % (0.0-0.4); Lymphocytes Absolute Auto 1.8 X10*3/uL (1.2-4.9); Mean Corpuscular HGB Conc 32.9 g/dl (31.0-36.0); Mean Corpuscular Hemoglobin 30.2 pg (27.0-33.0); Mean Corpuscular Volume 91.8 fL (80.0-98.0); Mean Platelet Volume 9.5 fL (9.4-12.4); Monocytes Absolute Auto 0.5 X10*3/uL (0.1-1.2); Monocytes Percent Auto 6.8 % (2-11); Neutrophils Percent Auto 59.5 % (45-73); Platelet Count 240 X10*3/uL (160-400); Red Blood Count 5.36 X10*6/uL (4.60-5.80); White Blood Count 6.6 X10*3/uL (4.8-10.8)
[2025-05-01 08:40] LABS: Alanine Aminotransferase 27 U/L (0-40); Albumin Level 4.6 g/dL (3.5-5.0); Alkaline Phosphatase 117 U/L (39-117); Anion Gap 14 (12-20); Aspartate Amino Transferase 18 U/L (5-37); Bilirubin Total 0.7 mg/dL (0.0-1.0); Blood Urea Nitrogen 19 mg/dL (9-16); Calcium 9.6 mg/dL (8.4-10.2); Carbon Dioxide 25 mmol/L (22-29); Chloride 107 mmol/L (96-108); Cholesterol 182 mg/dL (<200); Estimated Glomerular Filt Rate > 60; Glucose Fasting 96 mg/dL (60-99); HDL Cholesterol 31 mg/dL (>40); LDL Cholesterol Calculated 122 mg/dL (<100); Potassium 4.6 mmol/L (3.3-5.1); Sodium 141 mmol/L (135-145); Triglycerides 145 mg/dL (<150)
[2025-05-01 08:57] LABS: Prostate Specific Antigen 1.04 ng/mL (<0.05-4.0)
== END 2025-05-01 07:28 | disposition home or self-care (01) ==
LOC: HO.LAB 07:27
PROVIDERS: PCP Internal Medicine Medical Oncology; Visit Provider Internal Medicine Medical Oncology
DX: I10 Essential (primary) hypertension (principal); E78.5 Hyperlipidemia, unspecified; N40.0 Benign prostatic hyperplasia without lower urinary tract symptoms; Z12.5 Encounter for screening for malignant neoplasm of prostate
CPT/HCPCS: 36415; 80053; 80061; 84153; 85025